=== PATIENT | male | born 1960 | race Caucasian/White ===

== ENCOUNTER 2017-07-18 09:25 | Inpatient (IN) | payer MEDICARE ==
[~2017-07-18] VITALS: Ht 180.3 cm; Wt 157.0 kg
[~2017-07-18 09:25] MED LIST: ACETAMINOPHEN 325 MG TAB PO PRN; BENZ100 PO; BISACODYL 10 MG SUPP RECTAL PRN; CLIN300C5 PO; LACTULOSE SYRUP 20 GM/30 ML CUP PO PRN; MAGNESIUM HYDROXIDE SUSP 30 ML CUP PO PRN; MEDR4PAK PO; NALOXONE HCL 0.4 MG/ML AMP IV PUSH PRN; ONDANSETRON HCL 4 MG/2 ML VIAL IVP PRN; SENNOSIDES 8.6 MG TAB PO PRN; SODIUM CHLORIDE 0.9% FLUSH 10 ML FLUSH IV FLUSH PRN
[2017-07-18 09:30] VITALS: BP 105/57; PULSE 87; RESP 20; TEMP 98.2; O2SAT 93
[2017-07-18] MEDS: SODIUM CHLORIDE 0.9% FLUSH 10 ML FLUSH IV FLUSH SCH ×2 (10:38→21:40)
[2017-07-18] MEDS: DOCUSATE SODIUM 50 MG/SENNA 8.6 MG TAB PO SCH ×2 (10:38→21:40)
[2017-07-18] MEDS ORDERED: TEST200I13 IM (10:43)
[2017-07-18] MEDS ORDERED: METF1000 PO (10:43)
[2017-07-18] MEDS ORDERED: KLOR10TA PO (10:45)
[2017-07-18] MEDS ORDERED: LISI40TA PO (10:47)
[2017-07-18] MEDS ORDERED: CLOP75TA PO (10:49)
[2017-07-18] MEDS ORDERED: METO100T PO (10:50)
[2017-07-18] MEDS ORDERED: FURO40TA PO (10:52)
[2017-07-18] MEDS ORDERED: METH8TAB3 PO (10:52)
[2017-07-18] MEDS ORDERED: ROSU40 PO (10:53)
[2017-07-18] MEDS ORDERED: ASPI-516 CHEW (10:54)
[2017-07-18 11:00] VITALS: BP 105/91; PULSE 72; RESP 20; TEMP 96.9; O2SAT 91
[2017-07-18] MEDS: METOPROLOL TARTRATE 100 MG TAB PO SCH ×2 (12:15→21:51)
[2017-07-18] MEDS: FUROSEMIDE 40 MG TAB PO SCH ×2 (12:15→19:28)
[2017-07-18] MEDS: ASPIRIN 81 MG CHEW TAB CHEW SCH (13:00)
[2017-07-18] MEDS: CLOPIDOGREL 75 MG TAB PO SCH (13:00)
[2017-07-18 14:00] VITALS: O2SAT 91
[2017-07-18] MEDS ORDERED: methylPREDNISolone 4 MG TAB PO SCH (14:00)
[2017-07-18] MEDS ORDERED: [UNRECOGNIZED DRUG - OTHER] IM SCH (14:00)
[2017-07-18] MEDS ORDERED: TESTOSTERONE ENANTHATE IM SCH (14:00)
[2017-07-18] MEDS ORDERED: LANTUS2P SQ (14:22)
[2017-07-18] MEDS ORDERED: NOVOLOGP2 SQ ×3 (14:24→14:26)
[2017-07-18] MEDS ORDERED: GLUCAGON 1 MG/ML VIAL OTHER PRN (14:30)
[2017-07-18] MEDS ORDERED: RESP: ALBUTEROL 2.5 MG/IPRATROPIUM 0.5 MG NEB (PRN) NEB (14:30)
[2017-07-18] MEDS ORDERED: DEXTROSE 50% IN WATER 50 ML VIAL(D50) IV PUSH PRN (14:30)
--- NOTE | 2017-07-18 14:47 | HHI.HP ---
HPI Service [facility] Hospitalists Primary Care Physician Non-Staff Admission Diagnosis Diagnoses: Chief Complaint: Shortness of breath Travel History International Travel<30 Days: No Contact w/Intl Traveler <30 Da: No History of Present Illness This patient is a 57-year-old gentleman with a history of diabetes and obstructive sleep apnea who comes to the hospital complaining of shortness of breath and subjective fevers for about 2 days. He does not have any chest pain but notes that he has a cough which is nonproductive and increased dyspnea on exertion associated with lower extremity swelling left greater than right. Patient says that he has had a chronic left toe ulcer be involved with the wound management team at [facility] wound care center (he goes every Saturday ) he notes that it is the lower extremity has become more erythematous and with some increased swelling. He is also quite short of breath. He has some increased work of breathing and dyspnea on exertion. In the emergency room patient did have onset of fever and chills. His temperature was 101.7. Patient was recommended for admission to the hospital Review of Systems Constitutional: COMPLAINS OF: Fever, Chills, DENIES: Diaphoretic episodes, Fatigue, Weight gain, Weight loss, Dizziness, Change in appetite, Night Sweats Endocrine: DENIES: Heat/cold intolerance, Polydipsia, Polyuria, Polyphagia Eyes: DENIES: Blurred vision, Diplopia, Eye inflammation, Eye pain, Vision loss , Photosensitivity, Double Vision Ears, nose, mouth, throat: DENIES: Tinnitus, Hearing loss, Vertigo, Nasal discharge, Oral lesions, Throat pain, Hoarseness, Ear Pain, Running Nose, Epistaxis, Sinus Pain, Toothache, Odynophagia Respiratory: COMPLAINS OF: Cough, Shortness of breath, DENIES: Apneas, Snoring , Wheezing, Hemoptysis, Sputum production Cardiovascular: COMPLAINS OF: Dyspnea on Exertion, Lower Extremity Edema, Orthopnea, DENIES: Chest pain, Palpitations, Syncope, PND, Claudication Gastrointestinal: DENIES: Abdominal pain, Black stools, Bloody stools, Constipation, Diarrhea, Nausea, Vomiting, Difficulty Swallowing, Anorexia Genitourinary: DENIES: Sexual dysfunction, Urinary frequency, Urinary incontinence, Urgency, Hematuria, Dysuria, Nocturia, Penile Discharge, Testicular Pain, Testicular Swelling Musculoskeletal: DENIES: Joint pain, Muscle aches, Stiffness, Joint Swelling, Back pain, Neck pain Integumentary: DENIES: Abnormal pigmentation, Nail changes, Pruritus, Rash Hematologic/lymphatic: DENIES: Bruising, Lymphadenopathy Immunologic/allergic: DENIES: Eczema, Urticaria Neurologic: DENIES: Abnormal gait, Headache, Localized weakness, Paresthesias, Seizures, Speech Problems, Tremor, Poor Balance Psychiatric: DENIES: Anxiety, Confusion, Mood changes, Depression, Hallucinations, Agitation, Suicidal Ideation, Homicidal Ideation, Delusions Except as stated in HPI: all other systems reviewed are Neg Past Family Social History Past Medical History Diabetes with neuropathy Obstructive sleep apnea, diabetes mellitus Coronary artery disease status post cardiac bypass, [place] 2 with CHF Hypertension Past Surgical History Bilateral great toe distal resection Cardiac bypass, stenting Reported Medications Reviewed in the EMR Allergies: Coded Allergies: No Known Allergies (Unverified , 07/17/17) Active Ordered Medications Reviewed in the EMR Family History Mother in her 80s, heart attack, father in his late 40s from heart attack Social History Patient smokes a pack a day for the last 40 years, lives with his family and is , no alcohol Physical Exam Vital Signs Vital Signs Date Time Temp Pulse Resp B/P (MAP) Pulse Ox O2 Delivery O2 Flow Rate FiO2 07/18/17 11:00 96.9 72 20 105/91 (96) 91 07/18/17 09:30 98.2 87 20 105/57 (73) 93 Physical Exam GENERAL: This is a well-nourished, well-developed patient, who is short of breath lying supine, has orthopnea SKIN: No rashes, ecchymoses or lesions. Cool and dry. HEAD: Atraumatic. Normocephalic. No temporal or scalp tenderness. EYES: Pupils equal round and reactive. Extraocular motions intact. No scleral icterus. No injection or drainage. ENT: Nose without bleeding, purulent drainage or septal hematoma. Throat without erythema, tonsillar hypertrophy or exudate. Uvula midline. Airway patent. NECK: Trachea midline. No JVD or lymphadenopathy. Supple, nontender, no meningeal signs. CARDIOVASCULAR: Regular rate and rhythm without murmurs, gallops, or rubs. RESPIRATORY: Some pursed lip breathing at rest, decreased airflow bilaterally, I did not appreciate any wheezes GASTROINTESTINAL: Abdomen soft, non-tender, nondistended. No hepato-splenomegaly , or palpable masses. No guarding. MUSCULOSKELETAL: Extremities without clubbing, cyanosis, but there is +2 edema left greater than right, status post bilateral great toe partial distal resections, third toe on the left has some edematous changes consistent with probable cellulitis versus ulcer, patient with hyperflexed toes on both feet otherwise, upper extremities however show No joint tenderness, effusion, or edema noted. No calf tenderness. Negative Homans sign bilaterally. NEUROLOGICAL: Awake and alert. Cranial nerves II through XII intact. Motor and sensory grossly within normal limits. Five out of 5 muscle strength in all muscle groups. Normal speech. Imaging Chest x-ray 07/17 shows no acute intracardialOn my review from our intrapulmonary issues, I think there may be some vascular congestion however Course Reviewed in the EMR Caprini VTE Risk Assessment Caprini VTE Risk Assessment: Mod/High Risk (score >= 2) Caprini Risk Assessment Model Point Value = 1 Point Value = 2 Point Value = 3 Point Value = 5 Age 41-60 Minor surgery BMI > 25 kg/m2 Swollen legs Varicose veins or History of unexplained or recurrent spontaneous Oral contraceptives or hormone replacement Sepsis (< 1 month) Serious lung disease, including pneumonia (< 1 month) Abnormal pulmonary function Acute myocardial infarction Congestive heart failure (< 1 month) History of inflammatory bowel disease Medical patient at bed rest Age 61-74 Arthroscopic surgery Major open surgery (> 45 min) Laparoscopic surgery (> 45 min) Malignancy Confined to bed (> 72 hours) Immobilizing plaster cast Central venous access Age >= 75 History of VTE Family history of VTE Factor V Leiden Prothrombin [id number] Lupus anticoagulant Anticardiolipin antibodies Elevated serum homocysteine Heparin-induced thrombocytopenia Other congenital or acquired thrombophilia Stroke (< 1 month) Elective arthroplasty Hip, pelvis, or leg fracture Acute spinal cord injury (< 1 month) Prophylaxis Regimen Total Risk Factor Score Risk Level Prophylaxis Regimen 0-1 Low Early ambulation 2 Moderate Order ONE of the following: *Sequential Compression Device (SCD) *Heparin 5000 units SQ BID 3-4 Higher Order ONE of the following medications: *Heparin 5000 units SQ TID *Enoxaparin/Lovenox 40 mg SQ daily (WT < 150 kg, CrCl > 30 mL/min) *Enoxaparin/Lovenox 30 mg SQ daily (WT < 150 kg, CrCl > 10-29 mL/min) *Enoxaparin/Lovenox 30 mg SQ BID (WT < 150 kg, CrCl > 30 mL/min) AND/OR *Sequential Compression Device (SCD) 5 or more Highest Order ONE of the following medications: *Heparin 5000 units SQ TID (Preferred with Epidurals) *Enoxaparin/Lovenox 40 mg SQ daily (WT < 150 kg, CrCl > 30 mL/min) *Enoxaparin/Lovenox 30 mg SQ daily (WT < 150 kg, CrCl > 10-29 mL/min) *Enoxaparin/Lovenox 30 mg SQ BID (WT < 150 kg, CrCl > 30 mL/min) AND *Sequential Compression Device (SCD) Assessment and Plan Problem List: (1) SOB (shortness of breath) ICD Code: R06.02 - Shortness of breath Plan: May be multifactorial due to CHF versus COPD. Patient does have underlying obstructive sleep apnea. We will continue his home CPAP machine, will give a trial of nebulized bronchodilators as well as IV steroids Continue patient education on tobacco cessation. A follow-up echocardiogram as well, BMP is quite low however patient may have right-sided heart failure which will need to be further evaluated. Daily weights and accurate ins and outs ordered (2) Edema ICD Code: R60.9 - Edema, unspecified Plan: We will gently diurese patient for improved respiratory status and to improve edema (3) Toe infection ICD Code: L08.9 - Local infection of the skin and subcutaneous tissue, unspecified Plan: We will add Levaquin, follow-up with podiatry Patient currently in outpatient setting follows up with the wound care clinic at [place]. Foot appears a bit warm and edematous compared to the other side (4) DM2 (diabetes mellitus, type 2) ICD Code: E11.9 - Type 2 diabetes mellitus without complications (5) CO2 retention ICD Code: E87.2 - Acidosis Plan: Workup for possible COPD given patient's long-standing tobacco dependency , CO2 retention and shortness of breath (6) CKD (chronic kidney disease) stage 3, GFR 30-59 ml/min ICD Code: N18.3 - Chronic kidney disease, stage 3 (moderate) Plan: Likely due to underlying diabetes and hypertension. Will adjust medications appropriately for renal clearance and avoid nephrotoxic injury (7) LFT elevation ICD Code: R79.89 - Other specified abnormal findings of blood chemistry Plan: May be passive congestion. Will follow up improvement with some gentle diuresis (8) Fever ICD Code: R50.9 - Fever, unspecified Plan: Elevated temperature in the emergency room yesterday. Will continue with Levaquin for now, medically cellulitis X-ray and blood cultures at this time appear negative Urinalysis appears negative at this time also Physician Certification 2 Midnight Certification Type: Admission for Inpatient Services Order for Inpatient Services The services are ordered in accordance with Medicare regulations or non- Medicare payer requirements, as applicable. In the case of services not specified as inpatient-only, they are appropriately provided as inpatient services in accordance with the 2-midnight benchmark. Estimated LOS (days): 3 3 days is the estimated time the patient will need to remain in the hospital, assuming treatment plan goals are met and no additional complications. Post-Hospital Plan: Home Health Glenna Marrero MD Jul 18, 2017 14:47
[2017-07-18] MEDS ORDERED: LEVOFLOXACIN 250 MG TAB PO SCH (16:00)
[2017-07-18] MEDS: PIPERACIL-TAZO 4.5 GM PREMIX 100 ML IV SCH (16:04)
[2017-07-18] MEDS: INSULIN ASPART 1,000 UNITS/10 ML VIAL SQ SCH (16:09)
[2017-07-18 16:40] VITALS: BP 112/55; PULSE 77; RESP 16; TEMP 98.4; O2SAT 91
--- NOTE | 2017-07-18 17:13 | PD.CONS ---
History of Present Illness Service Podiatry Consult Requested By Dr Marrero Reason for Consult Left 2nd toe ulcer Primary Care Physician Non-Staff Diagnoses: History of Present Illness 57-year-old diabetic male who has had a wound to distal left 2nd toe for several months being treated at [facility]. He has history of amputation also to distal left hallux fur to infection. He was admitted due to having issues with breathing and he was also febrile. Podiatry was consulted to assess severity of left 2nd toe. Past Family Social History Allergies: Coded Allergies: No Known Allergies (Unverified , 07/17/17) Past Medical History Diabetes with neuropathy Obstructive sleep apnea, diabetes mellitus Coronary artery disease status post cardiac bypass, [place] 2 with CHF Hypertension Past Surgical History Bilateral great toe distal resection Cardiac bypass, stenting Active Ordered Medications Current Medications Medications (Trade) Dose Ordered Sig/Griffin Route Start Time Stop Time Status Last Admin (NS Flush) 2 ml UNSCH PRN IV FLUSH 07/18/17 06:45 (NS Flush) 2 ml BID IV FLUSH 07/18/17 09:00 07/18/17 10:38 (Tylenol) 650 mg Q4H PRN PO 07/18/17 06:45 (Zofran Inj) 4 mg Q6H PRN IVP 07/18/17 06:45 (Narcan Inj) 0.4 mg UNSCH PRN IV PUSH 07/18/17 06:45 (Tracy-Colace) 1 tab BID PO 07/18/17 11:00 07/18/17 10:38 (Milk Of Magnesia Liq) 30 ml Q12H PRN PO 07/18/17 06:45 (Senokot) 17.2 mg Q12H PRN PO 07/18/17 06:45 (Dulcolax Supp) 10 mg DAILY PRN RECTAL 07/18/17 06:45 (Lactulose Liq) 30 ml DAILY PRN PO 07/18/17 06:45 (Aspirin Chew) 81 mg DAILY CHEW 07/18/17 13:00 (Plavix) 75 mg DAILY PO 07/18/17 13:00 (Lasix) 40 mg BID@0900,1800 PO 07/18/17 12:15 (Lopressor) 100 mg BID PO 07/18/17 12:15 (KCl) 10 meq BID PO 07/18/17 21:00 Patient Own Medication PT OWN MED: TESTOSTERONE ENANTH... Q15D IM 07/18/17 14:00 Future Hold (Prinivil) 40 mg DAILY PO 07/19/17 09:00 (Lipitor) 80 mg DAILY PO 07/19/17 09:00 Piperacillin Sod/ Tazobactam Sod 100 ml @ 200 mls/hr Q8H IV 07/18/17 16:00 07/18/17 16:04 (D50w (Vial) Inj) 50 ml UNSCH PRN IV PUSH 07/18/17 14:30 (Glucagon Inj) 1 mg UNSCH PRN OTHER 07/18/17 14:30 (NovoLOG SUPPLEMENTAL SCALE) 1 ACHS SLIDING SCALE SQ 07/18/17 17:00 (NovoLOG INJ) 20 units AC BREAKFAST SQ 07/19/17 07:00 (NovoLOG INJ) 20 units AC DINNER SQ 07/18/17 16:00 07/18/17 16:09 (NovoLOG INJ) 20 units AC LUNCH SQ 07/19/17 11:00 (Levemir Inj) 51 units HS SQ 07/18/17 21:00 (Lasix Inj) 20 mg BID@,18 IV PUSH 07/18/17 18:00 (Duoneb Neb) 1 ampule Q6HR WHILE AWAKE NEB NEB 07/18/17 20:00 (Duoneb Neb) 1 ampule Q2HR NEB PRN NEB 07/18/17 14:30 (SoluMEDROL INJ) 40 mg Q8HR IV PUSH 07/18/17 22:00 (Levaquin) 250 mg Q48H PO 07/18/17 16:00 07/18/17 16:05 Family History Mother in her 80s, heart attack, father in his late 40s from heart attack Social History Patient smokes a pack a day for the last 40 years, lives with his family and is , no alcohol Physical Exam Vital Signs Vital Signs Date Time Temp Pulse Resp B/P (MAP) Pulse Ox O2 Delivery O2 Flow Rate FiO2 07/18/17 16:40 98.4 77 16 112/55 (74) 91 07/18/17 14:00 91 PT CPAP 2.00 07/18/17 11:00 96.9 72 20 105/91 (96) 91 07/18/17 09:30 98.2 87 20 105/57 (73) 93 Physical Exam Patient having difficulty breathing and uncomfortable lying down. Nonpalpable pulses. Edema present. no increase in temperature compared to contralateral extremity Distal left 2nd digit with edema and small distal ulceration with no active purulent drainage. No erythema. Does not appear to be acutely infected at this time. Sensation absent to light touch. Laboratory Laboratory Tests Test 07/18/17 15:25 Blood Gas Puncture Site RT RADIAL Blood Gas Patient Temperature 37.0 Blood Gas HCO3 30 Blood Gas Base Excess 5.8 Blood Gas Oxygen Saturation 92 Arterial Blood pH 7.45 Arterial Blood Partial Pressure CO2 44 Arterial Blood Partial Pressure O2 70 Arterial Blood Oxygen Content 21.6 Arterial Blood Carboxyhemoglobin 2.1 Arterial Blood Methemoglobin 0.9 Blood Gas Hemoglobin 16.8 Oxygen Delivery Device ROOM AIR Blood Gas Inspired Oxygen 21 Imaging MRI pending. XR L foot yesterday no gas in tissue Assessment and Plan Assessment and Plan Ulcer L 2nd toe, likely chronic osteomyelitis Ordering MRI L foot with/without contrast to evaluate for osteomyelitis. Ordering transfer due to needing surgery and very high risk for anesthesia complications due to significant comorbidities. Ordering vascular consultation with Dr Benítez due to nonhealing wound. Discussed with patient he will likely undergo distal toe amputation in the coming days, pending vascular workup Soy Lawson DPM Jul 18, 2017 17:13
[2017-07-18] MEDS: INSULIN ASPART SUPPLEMENTAL SCALE SQ SCH ×2 (18:15→21:39)
[2017-07-18] MEDS: FUROSEMIDE 20 MG/2 ML VIAL IV PUSH SCH (18:16)
[2017-07-18 19:12] VITALS: O2SAT 92
[2017-07-18] MEDS: RESP: ALBUTEROL 2.5 MG/IPRATROPIUM 0.5 MG NEB (SCH) NEB (19:12)
[2017-07-18 21:00] VITALS: BP 140/65; PULSE 101; RESP 20; TEMP 98; O2SAT 95
[2017-07-18] MEDS ORDERED: INSULIN DETEMIR 100 UNITS/ML VIAL SQ SCH (21:00)
[2017-07-18] MEDS: POTASSIUM CHLORIDE 10 MEQ CONTROLLED RELEASE TAB PO SCH (21:40)
[2017-07-18] MEDS: methylPREDNISolone SOD SUCC 40 MG/1 ML VIAL IV PUSH SCH (21:41)
[2017-07-18] MEDS: guaiFENesin/DEXTROMETHORPHAN 200 MG/20 MG/10 ML CUP PO PRN (22:51)
[2017-07-19] VITALS (8 sets, daily range): BP systolic 106–128; BP diastolic 55–65; PULSE 68–79; RESP 18–20; TEMP 97.3–98.3; O2SAT 90–98
[2017-07-19] MEDS: PIPERACIL-TAZO 4.5 GM PREMIX 100 ML IV SCH ×4 (01:22→23:04)
[2017-07-19] MEDS: guaiFENesin/DEXTROMETHORPHAN 200 MG/20 MG/10 ML CUP PO PRN ×4 (03:49→23:04)
[2017-07-19] MEDS: methylPREDNISolone SOD SUCC 40 MG/1 ML VIAL IV PUSH SCH ×2 (06:28→12:59)
[2017-07-19 07:25] LABS: AUTOMATED NEUTROPHIL # 7.9 TH/MM3 (1.8-7.7); BASOPHIL % 0.3 % (0.0-2.0); HEMATOCRIT 47.4 % (39.0-51.0); HEMOGLOBIN 16.2 GM/DL (13.0-17.0); LYMPH % 6.3 % (9.0-44.0); LYMPHOCYTE # 0.5 TH/MM3 (1.0-4.8); MEAN CELL VOLUME 89.9 FL (80.0-100.0); MEAN CORPUSCULAR HEMOGLOBIN 30.6 PG (27.0-34.0); MEAN CORPUSCULAR HGB CONC 34.1 % (32.0-36.0); MEAN PLATELET VOLUME 10.1 FL (7.0-11.0); MONO % 2.8 % (0.0-8.0); MONOCYTE # 0.2 TH/MM3 (0-0.9); NEUT % 90.6 % (16.0-70.0); PLATELET COUNT 126 TH/MM3 (150-450); RED BLOOD COUNT 5.28 MIL/MM3 (4.50-5.90); RED CELL DISTRIBUTION WIDTH 16.1 % (11.6-17.2); WHITE BLOOD COUNT 8.7 TH/MM3 (4.0-11.0)
[2017-07-19] MEDS: RESP: ALBUTEROL 2.5 MG/IPRATROPIUM 0.5 MG NEB (SCH) NEB ×2 (07:27→20:45)
[2017-07-19 07:37] LABS: BICARBONATE 32.4 MEQ/L (21.0-32.0); BLOOD UREA NITROGEN 41 MG/DL (7-18); CALCIUM 8.5 MG/DL (8.5-10.1); CHLORIDE 89 MEQ/L (98-107); CHOLESTEROL 86 MG/DL (120-200); CREATININE 1.56 MG/DL (0.60-1.30); GLOMERULAR FILTRATION RATE 46 ML/MIN (>89); GLUCOSE,RANDOM 249 MG/DL (74-106); SODIUM (NA) 129 MEQ/L (136-145); TRIGLYCERIDES 134 MG/DL (42-150)
[2017-07-19 07:40] LABS: CHOLESTEROL/ HDL RATIO 4.72 RATIO; HDL CHOLESTEROL 18.2 MG/DL (40.0-60.0); LDL CHOLESTEROL 41 MG/DL (0-99)
[2017-07-19] MEDS: INSULIN ASPART 1,000 UNITS/10 ML VIAL SQ SCH ×3 (08:56→16:00)
[2017-07-19] MEDS: DOCUSATE SODIUM 50 MG/SENNA 8.6 MG TAB PO SCH ×2 (09:00→21:12)
[2017-07-19] MEDS: INSULIN ASPART SUPPLEMENTAL SCALE SQ SCH ×4 (09:01→21:11)
[2017-07-19] MEDS: LISINOPRIL 20 MG TAB PO SCH (09:03)
[2017-07-19] MEDS: POTASSIUM CHLORIDE 10 MEQ CONTROLLED RELEASE TAB PO SCH ×2 (09:03→21:12)
[2017-07-19] MEDS: ATORVASTATIN 40 MG TAB PO SCH (09:04)
[2017-07-19] MEDS: ASPIRIN 81 MG CHEW TAB CHEW SCH (09:04)
[2017-07-19] MEDS: CLOPIDOGREL 75 MG TAB PO SCH (09:05)
[2017-07-19] MEDS: METOPROLOL TARTRATE 100 MG TAB PO SCH ×2 (09:06→21:22)
[2017-07-19] MEDS: SODIUM CHLORIDE 0.9% FLUSH 10 ML FLUSH IV FLUSH SCH ×2 (09:08→21:12)
[2017-07-19] MEDS: FUROSEMIDE 20 MG/2 ML VIAL IV PUSH SCH ×2 (09:08→17:37)
--- NOTE | 2017-07-19 09:47 | HHI.PR ---
Subjective Remarks Follow-up diabetic foot ulcer. Previous wound culture grew MRSA and asymptomatic. Does not remember being on antibiotics. Patient reports that he came in because of the right lower back pain that he had a kidney stone denies being short of breath. Reports of improving cough. History of coronary artery disease status post [place] status post stents and bypass in 2009. Negative stress test and echocardiogram over a year ago. Discussed with nursing Objective Vitals Vital Signs Date Time Temp Pulse Resp B/P (MAP) Pulse Ox O2 Delivery O2 Flow Rate FiO2 07/19/17 08:00 97.8 76 19 108/62 (77) 96 07/19/17 07:32 98 07/19/17 05:13 98.3 72 20 128/65 (86) 93 07/19/17 00:00 98.2 79 20 111/58 (75) 93 07/18/17 21:00 98.0 101 20 140/65 (90) 95 07/18/17 19:12 92 CPAP 2.00 07/18/17 16:40 98.4 77 16 112/55 (74) 91 07/18/17 14:00 91 PT CPAP 2.00 07/18/17 11:00 96.9 72 20 105/91 (96) 91 I/O 07/18/17 07/18/17 07/18/17 07/19/17 07/19/17 07/19/17 07:00 15:00 23:00 07:00 15:00 23:00 Intake Total 820 ml Output Total 200 ml Balance 620 ml Intake Oral 720 ml IV Total 100 ml Output Urine Total 200 ml # Voids 1 2 # Bowel Movements 1 Result Diagram: 07/19/17 0645 07/19/17 0645 Imaging Last Impressions Foot MRI 07/19/17 0000 Signed Impressions: Service Date/Time: Wednesday, July 19, 2017 14:09 - CONCLUSION: 1. No evidence of osteomyelitis at the 1st digit partial amputation site. 2. Mild diffuse soft tissue swelling about the distal forefoot without focal fluid collections seen. 3. Advanced degenerative changes in the calcaneus adjacent to the cuboid articulation and the anterior talar facet with associated subchondral cysts. Anatoliy Mccormick MD Objective Remarks GENERAL: This is an obese, well-developed patient SKIN: No rashes, ecchymoses or lesions. Cool and dry. CARDIOVASCULAR: Regular rate and rhythm without murmurs, gallops, or rubs. RESPIRATORY: Decreased breath sounds GASTROINTESTINAL: Abdomen soft, non-tender, nondistended.No guarding. No CVA tenderness MUSCULOSKELETAL: Extremities without clubbing, cyanosis, but there is +2 edema left greater than right, status post bilateral great toe partial distal resections, third toe on the left has some edematous changes with ulcer, patient with hyperflexed toes on both feet otherwise, upper extremities however show No joint tenderness, effusion, or edema noted. No calf tenderness. Negative Homans sign bilaterally. NEUROLOGICAL: Awake and alert. Cranial nerves II through XII intact. Motor and sensory grossly within normal limits. Five out of 5 muscle strength in all muscle groups. Normal speech. A/P Problem List: (1) SOB (shortness of breath) ICD Code: R06.02 - Shortness of breath (2) Edema ICD Code: R60.9 - Edema, unspecified (3) Toe infection ICD Code: L08.9 - Local infection of the skin and subcutaneous tissue, unspecified (4) DM2 (diabetes mellitus, type 2) ICD Code: E11.9 - Type 2 diabetes mellitus without complications (5) CO2 retention ICD Code: E87.2 - Acidosis (6) CKD (chronic kidney disease) stage 3, GFR 30-59 ml/min ICD Code: N18.3 - Chronic kidney disease, stage 3 (moderate) (7) LFT elevation ICD Code: R79.89 - Other specified abnormal findings of blood chemistry (8) Fever ICD Code: R50.9 - Fever, unspecified Assessment and Plan (1) SOB (shortness of breath) Patient denies being short of breath but has cough likely secondary to acute bronchitis no history of CHF or COPD. EF 50%. Patient does have underlying obstructive sleep apnea. Improving symptoms. We will continue his home CPAP machine, will give a trial of nebulized bronchodilators. Discontinue IV steroids as patient not complaining of shortness of breath anymore Continue patient education on tobacco cessation. (2) Edema. This is chronic. Elevation. Will hold Lasix for now secondary to acute kidney injury (3) diabetic toe ulcer. MRI does not show osteomyelitis. Previous wound culture with MRSA and Acinetobacter. Blood culture now with gram-positive cocci. We will continue IV Zosyn and add IV clindamycin. Can't give IV vancomycin secondary to acute kidney injury. Consult infectious disease. (4) DM2 (diabetes mellitus, type 2). Uncontrolled A1c over 10. Continue preprandial insulin and increase Levemir to 60 units at bedtime. Diabetic education. (5) CO2 retention. This is chronic with history of ANA possible COPD. Will need PFTs. Consider pulmonary consult (6) acute kidney injury with rhabdomyolysis. Start IV hydration and avoid nephrotoxins. Likely due to underlying diabetes and hypertension. Will adjust medications appropriately for renal clearance and avoid nephrotoxic injury (7) LFT elevation. May be passive congestion. Will follow up improvement (8) possible peripheral vascular disease. CTA has been ordered. (9) chronic medical conditions of coronary artery disease and hypertension. Continue outpatient medications as appropriate. Obtain records from PCP DVT prophylaxis with subcu heparin Dameon Ramos MD Jul 19, 2017 09:47
[2017-07-19 11:58] LABS: BILIRUBIN, URINE NEG (NEG); BLOOD, URINE SMALL (NEG); GLUCOSE,URINE 1000 mg/dL (NEG); KETONE, URINE 10 mg/dL (NEG); MUCUS URINE FEW /lpf (OCC); NITRITE,URINE NEG (NEG); PH, URINE 5.5 (5.0-8.5); URINE COLOR YELLOW (YELLW/STRAW); URINE LEUKOCYTE ESTERASE NEG (NEG)
--- NOTE | 2017-07-19 12:59 | ECHRPT ---
Indication: shortness of breath CONCLUSIONS The left ventricular systolic function is low normal with an estimated ejection fraction in the rang e of 50- 55%. Normal left ventricular size. Mild concentric left ventricular hypertrophy. No regional wall motion abnormalities are present. The left atrial size is mildly dilated. Trace mitral valve regurgitation. The pulmonary valve is not well visualized. BP: 128 / 65 HR: 72 Rhythm: Sinus MEASUREMENTS (Male / Female) Normal Values Technical Quality:Very technically difficult study 2D ECHO LV Diastolic Diameter PLAX 5.2 cm 4.2 - 5.9 / 3.9 - 5.3 cm LV Systolic Diameter PLAX 3.9 cm IVS Diastolic Thickness 1.3 cm 0.6 - 1.0 / 0.6 - 0.9 cm LVPW Diastolic Thickness 1.4 cm 0.6 - 1.0 / 0.6 - 0.9 cm LV Relative Wall Thickness 0.5 RV Internal Dim ED PLAX 3.7 cm LVOT Diameter 2.0 cm LA Systolic Diameter LX 4.4 cm 3.0 - 4.0 / 2.7 - 3.8 cm M-MODE Aortic Root Diameter MM 3.1 cm AV Cusp Separation MM 1.7 cm DOPPLER AV Peak Velocity 124.0 cm/s AV Peak Gradient 6.2 mmHg LVOT Peak Velocity 83.9 cm/s LVOT Peak Gradient 2.8 mmHg AV Area Cont Eq pk 2.1 cm MV Area PHT 5.1 cm Mitral E Point Velocity 81.9 cm/s Mitral A Point Velocity 48.4 cm/s Mitral E to A Ratio 1.7 LV E' Lateral Velocity 5.8 cm/s Mitral E to LV E' Lateral Ratio 14.2 LV E' Septal Velocity 3.8 cm/s Mitral E to LV E' Septal Ratio 21.6 PV Peak Velocity 103.0 cm/s PV Peak Gradient 4.2 mmHg FINDINGS LEFT VENTRICLE The left ventricular systolic function is low normal with an estimated ejection fraction in the rang e of 50- 55%. Normal left ventricular size. Mild concentric left ventricular hypertrophy. No regional wall motion abnormalities are present. RIGHT VENTRICLE Normal right ventricular size and systolic function. LEFT ATRIUM The left atrial size is mildly dilated. RIGHT ATRIUM The right atrial size is normal. ATRIAL SEPTUM Normal atrial septal thickness without atrial level shunting by limited color doppler interrogation. AORTA The aortic root and proximal ascending aorta are normal in size on limited imaging. MITRAL VALVE Structurally normal mitral valve. Trace mitral valve regurgitation. AORTIC VALVE Trileaflet aortic valve. No aortic valve stenosis or regurgitation. TRICUSPID VALVE Structurally normal tricuspid valve. No tricuspid valve stenosis or regurgitation. PULMONARY VALVE The pulmonary valve is not well visualized. VESSELS The inferior vena cava is normal in size. PERICARDIUM No pericardial effusion. Salvatore Gracia MD, FACC (Electronically Signed) Final Date:19 July 2017 12:59
[2017-07-19 14:38] LABS: HEMOGLOBIN A1C 10.6 % (4.3-6.0)
[2017-07-19] MEDS ORDERED: GADODIAMIDE PF 287 MG/ML 20 ML VIAL (for RAD MRI) IVCONTRAST ONE (15:14)
--- NOTE | 2017-07-19 16:12 | RADRPT ---
EXAM DATE/TIME: 07/19/2017 14:09 [facility] COMPARISON: FOOT LEFT LIMITED (2VWS), July 17, 2017, 21:31. INDICATIONS : Osteomyelitis. CONTRAST: 20 cc Omniscan (gadodiamide) IV MEDICAL HISTORY : Hypertension. Diabetes mellitus type 2. SURGICAL HISTORY : CABG Total knee replacement, right. Coronary artery stent. ENCOUNTER: Initial ACUITY: 1 day PAIN SCORE: 0/10 LOCATION: Left foot TECHNIQUE: Multiplanar, multisequence MRI examination was performed without contrast and after the intravenous a dministration of gadolinium. FINDINGS: Amputation of the mid 1st digit proximal phalanx. There is normal signal in the marrow of the residu al optimal phalanx and in the 1st metatarsal bone. No abnormal enhancement seen in the marrow. Mini mal amount of fluid is seen in the space between the distal 1st metatarsus and sesamoid bones. Mild soft tissue swelling about the dorsal and plantar aspect of the forefoot without focal areas of abnor mal enhancement seen. There is signal abnormality in the marrow of both the talus and calcaneus in t he space between the anterior and mid facet. There also multiple subchondral cysts in the calcaneus adjacent to the anterior facet and articulation with the cuboid bone. These cystic areas demonstrate some enhancement characteristic of subchondral cysts related to advanced degenerative changes. CONCLUSION: 1. No evidence of osteomyelitis at the 1st digit partial amputation site. 2. Mild diffuse soft tissue swelling about the distal forefoot without focal fluid collections seen. 3. Advanced degenerative changes in the calcaneus adjacent to the cuboid articulation and the anterio r talar facet with associated subchondral cysts. Anatoliy Mccormick MD on July 19, 2017 at 16:04 Board Certified Radiologist. This report was verified electronically.
--- NOTE | 2017-07-19 17:21 | MB ---
cc: MD PEPE,[facility] DATE OF CONSULTATION: 07/19/2017. REASON FOR CONSULTATION: Peripheral vascular disease and ischemia of the left leg with gangrene of the left second toe. HISTORY OF PRESENT ILLNESS: This is a 57-year-old male with longstanding history of diabetes, sleep apnea and morbid obesity presented to the hospital with a cough, but on exam, he was noted to have swelling and purulent discharge of the ulcer involving the left second toe. The patient was seen in the wound care center several times and the patient now has a temperature of 102 and leukocytosis. The appropriate services were consulted. Vascular surgery is now consulted for any input. PAST MEDICAL HISTORY: 1. Diabetes mellitus. 2. Peripheral neuropathy. 3. Sleep apnea. 4. Coronary artery disease status post myocardial infarction in 2009 and coronary artery bypass surgery. 5. Hypertension. PAST SURGICAL HISTORY: 1. The above-noted cardiac bypass and stents. 2. Bilateral great toe resection. SOCIAL HISTORY: The patient continues to smoke one pack a day. Drinks socially. PHYSICAL EXAMINATION: GENERAL: The physical examination reveals an obese 57-year-old male appearing older than his actual age. HEAD, EYES, EARS, NOSE, THROAT: Normocephalic. No trauma to the head. Pupils equal and reactive. Extraocular muscles intact. NECK: Bilateral carotid pulses. Very short and stocky. No bruits. CHEST: Decreased breath sounds over both lung fitch consistent with a moderate degree of COPD. The patient's body habitus does not allow for a good examination. ABDOMEN: Massively obese with active bowel sounds. No masses. No rebound. No guarding. The exam is limited due to the patient's habitus. EXTREMITIES: The patient has palpable femoral pulses and no distal pulses below that. He has Dopplerable popliteal and posterior tibial pulses. The dorsalis pedis and PT pulses by doppler present bilateral . The patient has dependent rubor. No elevation pallor though. Has bilateral hemosiderosis, lipo fibrosis and stigmata of chronic venous insufficiency and stasis with swelling and organized edema. NEUROLOGIC: He is fully intact. IMPRESSION: A patient with diabetic peripheral vascular disease. Patient does not have appreciable significant inflow disease down to the knees. The chances are the majority of this is below the level of the knee and likely diffuse, but will do a CTA with a runoff and see which way it goes. Unlikely that patient has any reconstructible pathology. Gregg RAHMAN /3:39 PM /4:52 PM LÁZARO
[2017-07-19] MEDS ORDERED: IOHEXOL 350 MG/ML 10 ML VIAL (for RAD DIAG) IVCONTRAST ONE (19:12)
[2017-07-19] MEDS: INSULIN DETEMIR 100 UNITS/ML VIAL SQ SCH (21:11)
[2017-07-19] MEDS: CLINDAMYCIN 600 MG/NS PREMIX 50 ML IV SCH (21:12)
[2017-07-19] MEDS: HEPARIN SODIUM - SQ 10,000 UNITS/ML VIAL SQ SCH ×2 (21:13→21:18)
[2017-07-19] MEDS: SODIUM CHLOR 0.9% 1000 ML INJ 1,000 ML IV SCH (21:32)
--- NOTE | 2017-07-19 21:33 | RADRPT ---
EXAM DATE/TIME: 07/19/2017 19:10 [facility] COMPARISON: No previous studies available for comparison. INDICATIONS : Wound to distal left second toe. IV CONTRAST: 99 cc Omnipaque 350 (iohexol) IV RADIATION DOSE: 8.90 CTDIvol (mGy) MEDICAL HISTORY : Hypertension. Chronic obstructive pulmonary disease. Diabetes mellitus type 1.C HF SURGICAL HISTORY : CABG Cholecystectomy. ENCOUNTER: Initial ACUITY: 1 day PAIN SCALE: 6/10 LOCATION: Left foot. TECHNIQUE: Volumetric scanning was performed using a multi-row detector CT scanner. The data was post processed with a variety of visualization algorithms including full volume maximum intensity pr ojection, multi-planar sliding thin slab reformation, curved planar reformation, and surface renderin g techniques. Using automated exposure control and adjustment of the mA and/or kV according to patie nt size, radiation dose was kept as low as reasonably achievable to obtain optimal diagnostic quality images. DICOM format image data is available electronically for review and comparison. AORTA: Abdominal aorta is normal in caliber without significant plaque or flow-limiting stenosis. 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 Mild stenosis of the renal or igins secondary calcified plaque. Left gastric artery apparently originates directly from the aorta. There is mild stenosis of the celiac origin secondary calcified plaque. Minimal stenosis of the SMA o rigin secondary calcified plaque. SERA is patent. RIGHT LEG: INFLOW: Calcified plaque in the common iliac origin with mild stenosis. Diffusely calcified inter nal iliac artery. External iliac artery is patent. Mild calcified plaque in the distal common femoral with mild stenosis. OUTFLOW: Profunda is patent. Distal SFA is diffusely calcified with tandem mild to moderate steno ses near the adductor canal. Popliteal artery is patent. RUNOFF: Bulky plaque in the distal tibioperoneal trunk. Otherwise, three-vessel runoff with a hig h origin of the inter-tibial artery. LEFT LEG: INFLOW: Calcified plaque in the common iliac origin with mild stenosis. Diffusely calcified inter nal iliac artery. External iliac artery is patent. Mild calcified plaque in the distal common femoral with mild stenosis. OUTFLOW: Profunda is patent. Mild diffuse calcified plaque in the distal SFA with tandem mild salome noses. Focal bulky calcification in the above knee popliteal artery with mild to moderate stenosis. RUNOFF: Bulky plaque in the distal tibioperoneal trunk. Otherwise, three-vessel runoff with a hig h origin of the inter-tibial artery. GENERAL FINDINGS: Visualized lung bases are clear. Evaluation of the abdominal viscera is limited due to arterial phase technique. Liver, spleen, adrenal glands, and pancreas are grossly unremarkable. There is a small 1 cm calcified density adjacent to the pancreatic head and away from the common bile duct. This may ref lect material in the duodenum or sequela of prior pancreatitis. Kidneys demonstrate symmetrical enhan cement without evidence for radiopaque renal calculi or hydronephrosis. No significant renal mass. Th e bowel appears unremarkable without evidence for obstruction. No significant free fluid or drainable fluid collection. Bladder is mildly distended but otherwise unremarkable. Prostate and seminal vesicles are within norm al limits. CONCLUSION: 1. No significant aortic occlusive disease. 2. Mild stenosis of the bilateral common iliac origins secondary calcified plaque. 3. Mild tandem stenoses of the distal SFA bilaterally. 4. Bulky calcified plaque in the distal tibioperoneal trunk bilaterally. Otherwise, three-vessel runo ff to the feet. 5. Small 1 cm calcified density adjacent to the pancreatic head and away from the common bile duct. T his may reflect material in the duodenum or sequela of prior pancreatitis. Jorge Cerda MD on July 19, 2017 at 21:21 Board Certified Radiologist. This report was verified electronically.
[2017-07-20] VITALS (7 sets, daily range): BP systolic 106–135; BP diastolic 55–80; PULSE 67–92; RESP 18–19; TEMP 97.1–98.4; O2SAT 92–98
[2017-07-20] MEDS: CLINDAMYCIN 600 MG/NS PREMIX 50 ML IV SCH ×2 (03:27→12:39)
[2017-07-20] MEDS: guaiFENesin/DEXTROMETHORPHAN 200 MG/20 MG/10 ML CUP PO PRN ×4 (03:27→21:10)
[2017-07-20] MEDS: INSULIN ASPART 1,000 UNITS/10 ML VIAL SQ SCH ×3 (07:00→16:00)
[2017-07-20] MEDS: RESP: ALBUTEROL 2.5 MG/IPRATROPIUM 0.5 MG NEB (SCH) NEB ×3 (07:45→19:41)
[2017-07-20] MEDS: INSULIN ASPART SUPPLEMENTAL SCALE SQ SCH ×4 (08:00→21:00)
[2017-07-20] MEDS: LISINOPRIL 20 MG TAB PO SCH (08:49)
[2017-07-20] MEDS: PIPERACIL-TAZO 4.5 GM PREMIX 100 ML IV SCH ×2 (08:49→16:42)
[2017-07-20] MEDS: CLOPIDOGREL 75 MG TAB PO SCH (08:50)
[2017-07-20] MEDS: ATORVASTATIN 40 MG TAB PO SCH (08:50)
[2017-07-20] MEDS: DOCUSATE SODIUM 50 MG/SENNA 8.6 MG TAB PO SCH ×2 (08:51→21:00)
[2017-07-20] MEDS: ASPIRIN 81 MG CHEW TAB CHEW SCH (08:51)
[2017-07-20] MEDS: METOPROLOL TARTRATE 100 MG TAB PO SCH ×2 (08:51→21:09)
[2017-07-20] MEDS: POTASSIUM CHLORIDE 10 MEQ CONTROLLED RELEASE TAB PO SCH ×2 (08:51→21:11)
[2017-07-20] MEDS: SODIUM CHLORIDE 0.9% FLUSH 10 ML FLUSH IV FLUSH SCH ×2 (08:52→21:11)
[2017-07-20] MEDS: HEPARIN SODIUM - SQ 10,000 UNITS/ML VIAL SQ SCH ×3 (08:54→21:00)
[2017-07-20] MEDS: SODIUM CHLOR 0.9% 1000 ML INJ 1,000 ML IV SCH (10:59)
[2017-07-20 11:05] LABS: AUTOMATED NEUTROPHIL # 6.7 TH/MM3 (1.8-7.7); BASOPHIL % 0.2 % (0.0-2.0); EOSINOPHIL % 0.1 % (0.0-4.0); HEMOGLOBIN 16.6 GM/DL (13.0-17.0); LYMPH % 10.7 % (9.0-44.0); LYMPHOCYTE # 0.9 TH/MM3 (1.0-4.8); MEAN CELL VOLUME 89.6 FL (80.0-100.0); MEAN CORPUSCULAR HGB CONC 34.5 % (32.0-36.0); MEAN PLATELET VOLUME 10.5 FL (7.0-11.0); MONOCYTE # 0.9 TH/MM3 (0-0.9); PLATELET COUNT 122 TH/MM3 (150-450); RED BLOOD COUNT 5.36 MIL/MM3 (4.50-5.90); RED CELL DISTRIBUTION WIDTH 15.9 % (11.6-17.2); WHITE BLOOD COUNT 8.5 TH/MM3 (4.0-11.0)
--- NOTE | 2017-07-20 11:31 | PD.CAR.PN ---
CVT Progress Note Subjective/Hospital Course: 07/20/2017 I reviewed the CTA with runoff and compared to the patient's clinical findings. In the patient has uninterrupted inflow into both legs and somewhat ratty SFA bilateral but no significant stenosis. Patient does have trifurcation disease with diffuse atherosclerotic changes in characteristic pattern with small vessel disease with long-standing diabetes mellitus Posterior tibial, anterior tibial and peroneal artery are patent but quite atherosclerotic There is no lesion that can be addressed either by open or endovascular approach because there is no hemodynamically significant stenosis encountered right it is all diffuse disease At this time there is nothing else we can do from a vascular point Would definitely proceed with podiatry surgery as planned and this should heal well for the blood flow is preserved Objective: Vital Signs Date Time Temp Pulse Resp B/P (MAP) Pulse Ox O2 Delivery O2 Flow Rate FiO2 07/20/17 08:00 97.1 83 18 133/55 (81) 92 07/20/17 04:00 98.0 72 18 124/76 (92) 98 07/20/17 00:00 98.0 67 18 115/80 (92) 96 07/19/17 20:45 94 21 07/19/17 20:00 97.3 74 18 109/55 (73) 90 07/19/17 20:00 97.3 74 18 109/55 (73) 90 07/19/17 16:00 97.5 75 19 113/60 (77) 94 07/19/17 12:00 97.7 68 18 106/59 (75) 92 Labs: Laboratory Tests Test 07/20/17 08:50 White Blood Count 8.5 TH/MM3 (4.0-11.0) Red Blood Count 5.36 MIL/MM3 (4.50-5.90) Hemoglobin 16.6 GM/DL (13.0-17.0) Hematocrit 48.0 % (39.0-51.0) Mean Corpuscular Volume 89.6 FL (80.0-100.0) Mean Corpuscular Hemoglobin 31.0 PG (27.0-34.0) Mean Corpuscular Hemoglobin Concent 34.5 % (32.0-36.0) Red Cell Distribution Width 15.9 % (11.6-17.2) Platelet Count 122 TH/MM3 (150-450) Mean Platelet Volume 10.5 FL (7.0-11.0) Neutrophils (%) (Auto) 79.0 % (16.0-70.0) Lymphocytes (%) (Auto) 10.7 % (9.0-44.0) Monocytes (%) (Auto) 10.0 % (0.0-8.0) Eosinophils (%) (Auto) 0.1 % (0.0-4.0) Basophils (%) (Auto) 0.2 % (0.0-2.0) Neutrophils # (Auto) 6.7 TH/MM3 (1.8-7.7) Lymphocytes # (Auto) 0.9 TH/MM3 (1.0-4.8) Monocytes # (Auto) 0.9 TH/MM3 (0-0.9) Eosinophils # (Auto) 0.0 TH/MM3 (0-0.4) Basophils # (Auto) 0.0 TH/MM3 (0-0.2) CBC Comment DIFF FINAL Differential Comment Result Diagram: 07/20/17 0850 07/19/17 0645 Gregg Benítez MD Jul 20, 2017 11:31
[2017-07-20 11:33] LABS: BICARBONATE 30.9 MEQ/L (21.0-32.0); CALCIUM 8.6 MG/DL (8.5-10.1); CREATININE 1.22 MG/DL (0.60-1.30); MAGNESIUM 2.5 MG/DL (1.5-2.5)
--- NOTE | 2017-07-20 11:47 | PD.POD ---
Subjective Pain score: 2 Remarks Doing well has intermittent coughing spells Past Med/Surg/Social History Social History Smoking Status: Former Smoker Objective Vital Signs Vital Signs Date Time Temp Pulse Resp B/P (MAP) Pulse Ox O2 Delivery O2 Flow Rate FiO2 07/20/17 08:00 97.1 83 18 133/55 (81) 92 07/20/17 04:00 98.0 72 18 124/76 (92) 98 07/20/17 00:00 98.0 67 18 115/80 (92) 96 07/19/17 20:45 94 21 07/19/17 20:00 97.3 74 18 109/55 (73) 90 07/19/17 20:00 97.3 74 18 109/55 (73) 90 07/19/17 16:00 97.5 75 19 113/60 (77) 94 07/19/17 12:00 97.7 68 18 106/59 (75) 92 Coded Allergies: No Known Allergies (Unverified , 07/17/17) Medications and IVs Administered Medications Medications (Trade) Dose Ordered Sig/Griffin Route PRN Reason Start Time Stop Time Status Last Admin Dose Admin Sodium Chloride (NS Flush) 2 ml BID IV FLUSH 07/18/17 09:00 07/20/17 08:52 Senna/Docusate Sodium (Tracy-Colace) 1 tab BID PO 07/18/17 11:00 07/20/17 08:51 Aspirin (Aspirin Chew) 81 mg DAILY CHEW 07/18/17 13:00 07/20/17 08:51 Clopidogrel Bisulfate (Plavix) 75 mg DAILY PO 07/18/17 13:00 07/20/17 08:50 Metoprolol Tartrate (Lopressor) 100 mg BID PO 07/18/17 12:15 07/20/17 08:51 Potassium Chloride (KCl) 10 meq BID PO 07/18/17 21:00 07/20/17 08:51 Lisinopril (Prinivil) 40 mg DAILY PO 07/19/17 09:00 07/20/17 08:49 Atorvastatin Calcium (Lipitor) 80 mg DAILY PO 07/19/17 09:00 07/20/17 08:50 Piperacillin Sod/ Tazobactam Sod 100 ml @ 200 mls/hr Q8H IV 07/18/17 16:00 07/20/17 08:49 Insulin Aspart (NovoLOG SUPPLEMENTAL SCALE) 1 ACHS SLIDING SCALE SQ 07/18/17 17:00 07/20/17 08:00 Insulin Aspart (NovoLOG INJ) 20 units AC BREAKFAST SQ 07/19/17 07:00 07/20/17 07:00 Insulin Aspart (NovoLOG INJ) 20 units AC DINNER SQ 07/18/17 16:00 07/19/17 16:00 Insulin Aspart (NovoLOG INJ) 20 units AC LUNCH SQ 07/19/17 11:00 07/19/17 11:00 Albuterol/ Ipratropium (Duoneb Neb) 1 ampule Q6HR WHILE AWAKE NEB NEB 07/18/17 20:00 07/20/17 07:45 Guaifenesin/ Dextromethorphan (Robitussin Dm 200-20 Mg/10 ml Liq) 10 ml Q4H PRN PO cough interfering with rest 07/18/17 22:30 07/20/17 03:27 Insulin Detemir (Levemir Inj) 60 units HS SQ 07/19/17 21:00 07/19/17 21:11 Clindamycin/ Sodium Chloride 50 ml @ 100 mls/hr Q8H IV 07/19/17 20:00 07/20/17 03:27 Sodium Chloride 1,000 ml @ 84 mls/hr [id number] IV 07/19/17 20:00 07/20/17 10:59 Heparin Sodium (Porcine) (Heparin Inj) 5,000 units Q12HR SQ 07/19/17 21:00 07/20/17 10:30 Laboratory Tests Test 07/19/17 06:45 07/20/17 08:50 White Blood Count 8.7 TH/MM3 8.5 TH/MM3 Red Blood Count 5.28 MIL/MM3 5.36 MIL/MM3 Hemoglobin 16.2 GM/DL 16.6 GM/DL Hematocrit 47.4 % 48.0 % Mean Corpuscular Volume 89.9 FL 89.6 FL Mean Corpuscular Hemoglobin 30.6 PG 31.0 PG Mean Corpuscular Hemoglobin Concent 34.1 % 34.5 % Red Cell Distribution Width 16.1 % 15.9 % Platelet Count 126 TH/MM3 122 TH/MM3 Mean Platelet Volume 10.1 FL 10.5 FL Neutrophils (%) (Auto) 90.6 % 79.0 % Lymphocytes (%) (Auto) 6.3 % 10.7 % Monocytes (%) (Auto) 2.8 % 10.0 % Eosinophils (%) (Auto) 0.0 % 0.1 % Basophils (%) (Auto) 0.3 % 0.2 % Neutrophils # (Auto) 7.9 TH/MM3 6.7 TH/MM3 Lymphocytes # (Auto) 0.5 TH/MM3 0.9 TH/MM3 Monocytes # (Auto) 0.2 TH/MM3 0.9 TH/MM3 Eosinophils # (Auto) 0.0 TH/MM3 0.0 TH/MM3 Basophils # (Auto) 0.0 TH/MM3 0.0 TH/MM3 CBC Comment DIFF FINAL DIFF FINAL Differential Comment Laboratory Tests Test 07/19/17 06:45 07/19/17 12:32 07/20/17 08:50 Blood Urea Nitrogen 41 MG/DL 39 MG/DL Creatinine 1.56 MG/DL 1.22 MG/DL Random Glucose 249 MG/DL 203 MG/DL Calcium Level 8.5 MG/DL 8.6 MG/DL Sodium Level 129 MEQ/L 131 MEQ/L Potassium Level 3.8 MEQ/L 3.4 MEQ/L Chloride Level 89 MEQ/L 92 MEQ/L Carbon Dioxide Level 32.4 MEQ/L 30.9 MEQ/L Anion Gap 8 MEQ/L 8 MEQ/L Estimat Glomerular Filtration Rate 46 ML/MIN 61 ML/MIN Hemoglobin A1c 10.6 % Triglycerides Level 134 MG/DL Cholesterol Level 86 MG/DL LDL Cholesterol 41 MG/DL HDL Cholesterol 18.2 MG/DL Cholesterol/HDL Ratio 4.72 RATIO Total Creatine Kinase 969 U/L 527 U/L Creatine Kinase MB 3.9 NG/ML Creatine Kinase MB % 0.4 % Magnesium Level 2.5 MG/DL Last 72 hours Impressions Foot MRI 07/19/17 0000 Signed Impressions: Service Date/Time: Wednesday, July 19, 2017 14:09 - CONCLUSION: 1. No evidence of osteomyelitis at the 1st digit partial amputation site. 2. Mild diffuse soft tissue swelling about the distal forefoot without focal fluid collections seen. 3. Advanced degenerative changes in the calcaneus adjacent to the cuboid articulation and the anterior talar facet with associated subchondral cysts. Anatoliy Mccormick MD Aorta w/Runoff CTA 07/19/17 0000 Signed Impressions: Service Date/Time: Wednesday, July 19, 2017 19:10 - CONCLUSION: 1. No significant aortic occlusive disease. 2. Mild stenosis of the bilateral common iliac origins secondary calcified plaque. 3. Mild tandem stenoses of the distal SFA bilaterally. 4. Bulky calcified plaque in the distal tibioperoneal trunk bilaterally. Otherwise, three-vessel runoff to the feet. 5. Small 1 cm calcified density adjacent to the pancreatic head and away from the common bile duct. This may reflect material in the duodenum or sequela of prior pancreatitis. Jorge Cerda MD Physical Exam Remarks Nonpalpable pulses. Edema present. no increase in temperature compared to contralateral extremity Distal left 2nd digit with edema and small distal ulceration with no active purulent drainage. No erythema. Does not appear to be acutely infected at this time. Sensation absent to light touch. Assessment & Plan A/P Left second digit ulcer hammertoe MRI appears to be no signs of bone infection, chronic hammertoe however processes problems with healing. We discussed possibility of flexor tenotomy to allow some correction of the hammertoe that may alleviate some pressure forces causing ulcer versus amputation of the digit. I will discuss with vascular before making decision. Barron Huerta DPM Jul 20, 2017 11:47
[2017-07-20] MEDS ORDERED: INSULIN DETEMIR 100 UNITS/ML VIAL SQ SCH (12:00)
--- NOTE | 2017-07-20 14:03 | HHI.PR ---
Subjective Remarks Follow-up gram-positive bacteremia. Continues to have back pain. Denies shortness of breath but has cough. States he uses Levemir 51 units twice a day and potassium 40 mEq in the morning and 20 mEq in the evening. Discussed with nursing Objective Vitals Vital Signs Date Time Temp Pulse Resp B/P (MAP) Pulse Ox O2 Delivery O2 Flow Rate FiO2 07/20/17 12:00 97.1 70 19 106/56 (73) 95 07/20/17 08:00 97.1 83 18 133/55 (81) 92 07/20/17 04:00 98.0 72 18 124/76 (92) 98 07/20/17 00:00 98.0 67 18 115/80 (92) 96 07/19/17 20:45 94 21 07/19/17 20:00 97.3 74 18 109/55 (73) 90 07/19/17 20:00 97.3 74 18 109/55 (73) 90 07/19/17 16:00 97.5 75 19 113/60 (77) 94 I/O 07/19/17 07/19/17 07/19/17 07/20/17 07/20/17 07/20/17 07:00 15:00 23:00 07:00 15:00 23:00 Intake Total 1970 ml 747 ml Output Total 325 ml 1200 ml Balance -325 ml 1970 ml -453 ml Intake Oral 1920 ml IV Total 50 ml 747 ml Output Urine Total 325 ml 1200 ml # Voids 2 2 5 # Bowel Movements 0 Result Diagram: 07/20/17 0850 07/20/17 0850 Imaging Last Impressions Foot MRI 07/19/17 0000 Signed Impressions: Service Date/Time: Wednesday, July 19, 2017 14:09 - CONCLUSION: 1. No evidence of osteomyelitis at the 1st digit partial amputation site. 2. Mild diffuse soft tissue swelling about the distal forefoot without focal fluid collections seen. 3. Advanced degenerative changes in the calcaneus adjacent to the cuboid articulation and the anterior talar facet with associated subchondral cysts. Anatoliy Mccormick MD Aorta w/Runoff CTA 07/19/17 0000 Signed Impressions: Service Date/Time: Wednesday, July 19, 2017 19:10 - CONCLUSION: 1. No significant aortic occlusive disease. 2. Mild stenosis of the bilateral common iliac origins secondary calcified plaque. 3. Mild tandem stenoses of the distal SFA bilaterally. 4. Bulky calcified plaque in the distal tibioperoneal trunk bilaterally. Otherwise, three-vessel runoff to the feet. 5. Small 1 cm calcified density adjacent to the pancreatic head and away from the common bile duct. This may reflect material in the duodenum or sequela of prior pancreatitis. Jorge Cerda MD Objective Remarks GENERAL: This is an obese, well-developed patient SKIN: No rashes, ecchymoses or lesions. Cool and dry. CARDIOVASCULAR: Regular rate and rhythm without murmurs, gallops, or rubs. RESPIRATORY: Decreased breath sounds GASTROINTESTINAL: Abdomen soft, non-tender, nondistended.No guarding. No CVA tenderness MUSCULOSKELETAL: Extremities without clubbing, cyanosis, but there is +2 edema left greater than right, status post bilateral great toe partial distal resections, third toe on the left has some edematous changes with ulcer, patient with hyperflexed toes on both feet otherwise, upper extremities however show No joint tenderness, effusion, or edema noted. No calf tenderness. Negative Homans sign bilaterally. NEUROLOGICAL: Awake and alert. Cranial nerves II through XII intact. Motor and sensory grossly within normal limits. Five out of 5 muscle strength in all muscle groups. Normal speech. A/P Problem List: (1) SOB (shortness of breath) ICD Code: R06.02 - Shortness of breath (2) Edema ICD Code: R60.9 - Edema, unspecified (3) Toe infection ICD Code: L08.9 - Local infection of the skin and subcutaneous tissue, unspecified (4) DM2 (diabetes mellitus, type 2) ICD Code: E11.9 - Type 2 diabetes mellitus without complications (5) CO2 retention ICD Code: E87.2 - Acidosis (6) CKD (chronic kidney disease) stage 3, GFR 30-59 ml/min ICD Code: N18.3 - Chronic kidney disease, stage 3 (moderate) (7) LFT elevation ICD Code: R79.89 - Other specified abnormal findings of blood chemistry (8) Fever ICD Code: R50.9 - Fever, unspecified Assessment and Plan Gram-positive bacteremia source not clear. Echocardiogram without vegetations EF of 50%. He has diabetic toe ulcer MRI does not show osteomyelitis but previous wound culture with MRSA and Acinetobacter. We will continue IV Zosyn and agree with IV vancomycin since renal function has improved. Discussed with infectious disease, obtain lumbar spine MRI secondary to back pain to look for discitis/osteomyelitis. DM2 (diabetes mellitus, type 2). Uncontrolled A1c over 10. Continue preprandial insulin and increase Levemir to 60 units at bedtime. Resume Levemir 51 units in the morning. Diabetic education. CO2 retention. This is chronic with history of ANA possible COPD. Will need PFTs. Consider pulmonary consult Acute bronchitis. Clinically improving. History of ANA continue home CPAP, nebulizations status post steroids. Tobacco cessation Chronic bilateral lower extremity pitting edema. Elevation. Hold Lasix secondary to acute kidney injury. Acute kidney injury with rhabdomyolysis. Improved discontinue IV hydration and avoid nephrotoxins. Mild AST elevation. Likely from infection will follow up Possible peripheral vascular disease. CTA with no significant occlusive disease Chronic medical conditions of coronary artery disease and hypertension. Continue outpatient medications as appropriate. Obtain records from PCP DVT prophylaxis with subcu heparin Discharge Planning Rehab versus home health care Dameon Ramos MD Jul 20, 2017 14:03
[2017-07-20] MEDS ORDERED: Vancomycin Consult Pharmacy 1 EA OTHER SCH (14:30)
[2017-07-20] MEDS ORDERED: VANCOMYCIN INJ 2,500 MG in SODIUM CHLORID 0.9% 500 ML INJ 500 ML IV ONE (17:00)
--- NOTE | 2017-07-20 18:06 | MB ---
cc: DELORES RAMOS MD, FRANKLYN F. MD DATE OF CONSULTATION: 07/20/2017 REQUESTING PHYSICIAN: Dr. Ramos. REASON FOR CONSULTATION: Bacteremia. HISTORY OF PRESENT ILLNESS The patient is a 57 year-old white male who presented to the emergency department at [facility] on July 17. He was said to have acute bronchitis. The patient had a cough at the time. He was admitted to [facility] on July 17, and workup was pursued. He had a low grade fever of 100.8 degrees on the evening of 07/17. Plans were for releasing him from the hospital. However, in the sourcing consultant hours of 07/18, he had another temperature spike of 101.8 degrees. The patient also has a wound of the left second toe and he was transferred over to [facility] for evaluation. He had been evaluated by vascular surgery and podiatry. He has a wound of the tuft of the second toe which has been cared for by wound care previously. In the interim blood cultures from 07/17 came back with staph coagulase positive in all four bottles. The patient is complaining of back pain. He has sleep apnea and he wears a C-PAP machine. He states he has to wear it all the time. He said that he had some shaking chills yesterday. An MRI of the foot was performed and it shows no signs of osteomyelitis. He has a chronic hammertoe. The patient is afebrile. Currently he is on clindamycin and Piperacillin/tazobactam. The patient denies nausea, vomiting, abdominal pain or dysuria. PAST MEDICAL HISTORY Diabetes, diabetic neuropathy, obstructive sleep apnea, coronary artery disease, hypertension, history of coronary bypass graft surgery in 2009, history of myocardial infarction x2, hypertension, bilateral great toe distal resection, coronary artery stents. ALLERGIES NO KNOWN DRUG ALLERGIES. MEDICATIONS 1. Clindamycin. 2. Piperacillin / tazobactam. 3. Insulin. 4. DuoNeb. 5. Potassium. 6. Prinivil. 7. Lipitor. 8. Subcutaneous heparin. 9. Aspirin. 10. Plavix. 11. Lopressor. 12. Tracy-Colace. SOCIAL HISTORY Positive tobacco, half-pack per day. No alcohol. Denies illicit drug use. FAMILY HISTORY: Noncontributory. REVIEW OF SYSTEMS Constitutional: Significant for fever and chills. Head, ears, eyes, nose and throat: Denies blurry vision or diplopia. Denies soreness of the throat or difficulty swallowing. Denies neck pain. Cardiovascular: Significant for dyspnea with exertion. Respiratory: Significant for cough and shortness of breath. Gastrointestinal: Denies abdominal pain. Genitourinary: Denies urgency or frequency. Musculoskeletal: Denies muscle aches or pains. Hematopoietic: Denies easy bruising or bleeding. Integumentary. Denies skin rash or itching. Neurologic: Denies problems with coordination. Psychiatric: Denies mood changes. PHYSICAL EXAMINATION This is a morbidly obese male who is laying in bed and is awake and alert. He has a C-PAP machine in place and is on 2 liters oxygen. Vital signs: Include temperature 97.1, BP 106/56, respirations 18, heart rate 70. HEENT: Head is atraumatic. Extraocular movements grossly intact, pupils reactive to light. No icterus. No conjunctival erythema. Oropharynx: mucosa is moist. Neck: Supple without adenopathy or swelling. Lungs: Clear breath sounds which are slightly diminished. Heart: Regular S1-S2. No audible murmurs, rubs or gallops. Abdomen: Bowel sounds present, soft, morbidly obese. The patient has very large abdominal girth. Rectal: Not performed. Extremities: No clubbing or cyanosis. The left second toe has a tiny ulceration at the tuft. Surrounding that is some maceration of the skin at the tuft of the toe. The toes has a hammertoe deformity. No significant erythema. Skin: No diffuse rash except for erythematous hue at the chest, neck and face. Neuro: No gross focal findings. Psychiatric: The patient is calm and cooperative. LABORATORY DATA WBC 8.5, platelets 122, hemoglobin 16.6, 79% neutrophils, creatinine 1.22, estimated GFR 61, sodium 131. Urinalysis unremarkable. IMPRESSION 1. Bacteremia due to staph coagulase-positive. 2. The patient had fever and he has a wound at the left second toe which has been managed by wound care. It is unclear whether the second toe wound is the cause of the bacteremia. 3. The patient has no sputum production and it appears that he has had a chronic cough. 4. Back pain, unknown etiology. RECOMMENDATIONS 1. Begin vancomycin intravenous. 2. Discontinue clindamycin. 3. Obtain MRI of the back to evaluate for potential seeding from bacteremia in association with the back pain. 4. Monitor sensitivity and identity of the blood cultures. 5. Monitor clinical status, and repeat the blood cultures again tomorrow. 6. Obtain sedimentation rate. Thank you for this consultation. The patient's progress will be monitored and further recommendations will be given upon followup if necessary. Ronan Monte MD FD/WESLEY /2:11 PM /5:41 PM MTDRobert
[2017-07-20] MEDS ORDERED: GADODIAMIDE PF 287 MG/ML 20 ML VIAL (for RAD MRI) IVCONTRAST ONE (20:11)
--- NOTE | 2017-07-20 20:37 | RADRPT ---
EXAM DATE/TIME: 07/20/2017 19:50 [place] COMPARISON: CTA RUNOFF W 3D RECON, July 19, 2017, 19:10. INDICATIONS : Osteomyelitis. Back pain. CONTRAST: 20 cc Omniscan (gadodiamide) IV MEDICAL HISTORY : Hypertension. Diabetes mellitus type 2. SURGICAL HISTORY : Coronary artery stent. CABG ENCOUNTER: Initial ACUITY: 1 day PAIN SCORE: 5/10 LOCATION: Paraspinal TECHNIQUE: Multiplanar multisequence MRI of the lumbar spine was performed with and without contrast. FINDINGS: The most caudal appearing lumbar vertebra is numbered as L5. VERTEBRAE: There is a 16mm bone lesion in the right aspect of the L5 vertebral body. Centrally it is hypointense on T1-weighted imaging and T2 hyperintense with a thin rim of T1 hyperintense signal. This lesion de monstrates internal enhancement. Otherwise, bone marrow signal within the remaining vertebral bodies is within normal limits. Vertebral body height is maintained. There is no anterolisthesis or retrolis thesis. CONUS: Normal level and configuration. POST CONTRAST: There is enhancement within the 16mm bone lesion in the right vertebral body. T12-L1: No disc herniation, canal stenosis, or neural foraminal stenosis. L1-L2: No disc herniation, canal stenosis, or neural foraminal stenosis. L2-L3: No disc herniation, canal stenosis, or neural foraminal stenosis. There is mild facet hypertrophy. L3-L4: No disc herniation, canal stenosis, or neural foraminal stenosis. There is facet hypertrophy. L4-L5: No disc herniation, canal stenosis, or neural foraminal stenosis. There is moderate facet hypertrophy . L5-S1: No disc herniation, canal stenosis, or neural foraminal stenosis. There is moderate facet hypertrophy , left greater than right. The visualized paraspinous structures demonstrate no acute finding. CONCLUSION: 1. There are no imaging findings to indicate a discitis or osteomyelitis. Additionally, there is no s evgeny canal stenosis or neural foraminal narrowing. There is mild to moderate facet arthrosis in the lower lumbar spine. 2. There is a 16mm nonspecific bone lesion in the right aspect of the L5 vertebral body. It is occult on prior CT. One consideration is an atypical hemangioma. However, more concerning lesions cannot be excluded. Consider bone scan for further evaluation of abnormal activity in this area. King Donato MD on July 20, 2017 at 20:29 Board Certified Radiologist. This report was verified electronically.
[2017-07-20] MEDS: INSULIN DETEMIR 100 UNITS/ML VIAL SQ SCH (21:09)
[2017-07-21] VITALS (7 sets, daily range): BP systolic 129–164; BP diastolic 55–77; PULSE 74–89; RESP 18–22; TEMP 97.3–99; O2SAT 92–100
[2017-07-21] MEDS ORDERED: LACTATED RINGER'S 1000 ML IV PRN (05:30)
[2017-07-21] MEDS ORDERED: CHLORHEXIDINE GLUCONATE 2 % 1 PACK (2 CLOTHS) TOPICAL PRN (05:30)
[2017-07-21] MEDS ORDERED: POVIDONE IODINE 5% (ANTISEPSIS KIT) 4 APPLICATIONS EACH NARE PRN (05:30)
[2017-07-21] MEDS ORDERED: SODIUM CHLORID 0.9% 500 ML IV PRN (05:30)
[2017-07-21] MEDS: INSULIN ASPART 1,000 UNITS/10 ML VIAL SQ SCH ×3 (07:00→18:00)
[2017-07-21] MEDS: RESP: ALBUTEROL 2.5 MG/IPRATROPIUM 0.5 MG NEB (SCH) NEB ×3 (07:32→20:31)
[2017-07-21] MEDS ORDERED: BUPIVACAINE HCL PF 0.25% 30 ML VIAL ONE (07:34)
[2017-07-21] MEDS: INSULIN ASPART SUPPLEMENTAL SCALE SQ SCH ×4 (08:00→21:00)
[2017-07-21] MEDS: PIPERACIL-TAZO 4.5 GM PREMIX 100 ML IV SCH ×2 (08:00→16:23)
[2017-07-21] MEDS ORDERED: KETAMINE HCL 500 MG/5 ML VIAL ONE (08:27)
[2017-07-21] MEDS: DOCUSATE SODIUM 50 MG/SENNA 8.6 MG TAB PO SCH ×2 (09:00→21:00)
[2017-07-21] MEDS: POTASSIUM CHLORIDE 10 MEQ CONTROLLED RELEASE TAB PO SCH ×2 (09:00→21:42)
[2017-07-21] MEDS: HEPARIN SODIUM - SQ 10,000 UNITS/ML VIAL SQ SCH ×2 (09:00→21:00)
[2017-07-21] MEDS: SODIUM CHLORIDE 0.9% FLUSH 10 ML FLUSH IV FLUSH SCH ×2 (09:00→21:47)
--- NOTE | 2017-07-21 09:14 | EKG ---
Date Performed: 07/21/2017 Time Performed: 05:54:14 PTAGE: 57 years EKG: Ectopic atrial rhythm. Leftward axis Nonspecific intraventricular conduction delay Inferior infarct - age undetermined Septal and lateral ST-T changes are nonspecific Abnormal ECG NO PREVIOUS TRACING DOCTOR: Piyush Delgado Interpretating Date/Time 07/21/2017 09:13:27
[2017-07-21] MEDS ORDERED: MIDAZOLAM HCL 2 MG/2 ML VIAL ONE (09:20)
--- NOTE | 2017-07-21 09:25 | HHI.PR ---
Immediate Post Op Note Procedure Date: Jul 21, 2017 Pre Op Diagnosis: Left 2nd digit ulcer infection hammertoe Post Op Diagnosis: same Surgeon: Barron Gilmore Exhibits Manager(s): scrub Procedure: Left 2nd digit amputation Findings: viable tissue at amp site no obvious infection Complications: none Specimen(s) removed: left 2nd digit for path and deep wd cx at the 2nd MPJ Estimated blood loss: less 5mL Anesthesia: MAC, Local Drains: None Fluids: see anesthesia IVF Tourniquet time (min at mmHg) 10 min 250mmhg Patient Condition: Fair Implant/Devices: SEE IMPLANT LOG (if applicable) Date/Time of Procedure: SEE SURGICAL CARE RECORD Barron GilmoreM Jul 21, 2017 09:25
[2017-07-21] MEDS ORDERED: DO NOT ADM ANY ANTICOAGULANT DRUGS PRN (09:30)
[2017-07-21] MEDS: METOPROLOL TARTRATE 100 MG TAB PO SCH ×2 (11:22→21:42)
[2017-07-21] MEDS: CLOPIDOGREL 75 MG TAB PO SCH (11:23)
[2017-07-21] MEDS: LISINOPRIL 20 MG TAB PO SCH (11:23)
[2017-07-21] MEDS: ASPIRIN 81 MG CHEW TAB CHEW SCH (11:23)
[2017-07-21] MEDS: ATORVASTATIN 40 MG TAB PO SCH (11:24)
[2017-07-21] MEDS ORDERED: INSULIN DETEMIR 100 UNITS/ML VIAL SQ ONE (11:30)
[2017-07-21] MEDS ORDERED: LIDOCAINE HCL 1% PF 5 ML SYRINGE OTHER ONE (12:00)
[2017-07-21] MEDS ORDERED: PROPOFOL 200 MG/20 ML AMP IV ONE (12:00)
[2017-07-21] MEDS: VANCOMYCIN INJ 2,000 MG in SODIUM CHLORID 0.9% 500 ML INJ 500 ML IV SCH (12:29)
--- NOTE | 2017-07-21 14:55 | HHI.PR ---
Subjective Remarks Follow-up MRSA bacteremia. Improving right lower back pain. No shortness of breath with improving cough. Patient hypoglycemic this morning as he was made n.p.o. Discussed with nursing and podiatry Objective Vitals Vital Signs Date Time Temp Pulse Resp B/P (MAP) Pulse Ox O2 Delivery O2 Flow Rate FiO2 07/21/17 14:29 94 cpap 2.00 07/21/17 12:00 97.3 80 19 135/77 (96) 95 07/21/17 09:45 98.2 77 17 118/62 (80) 97 Nasal Cannula 07/21/17 09:30 77 18 121/62 (81) 95 Nasal Cannula 07/21/17 09:15 97.6 78 18 116/58 (77) 95 Nasal Cannula 07/21/17 08:00 97.4 74 18 164/73 (103) 96 07/21/17 05:30 98.1 80 22 130/60 (83) 100 07/21/17 00:20 97.9 89 20 129/62 (84) 100 07/20/17 21:20 98.4 92 19 134/63 (86) 97 07/20/17 20:39 96 07/20/17 16:00 97.2 80 19 135/63 (87) 96 I/O 07/20/17 07/20/17 07/20/17 07/21/17 07/21/17 07/21/17 07:00 15:00 23:00 07:00 15:00 23:00 Intake Total 747 ml 1000 ml 500 ml 500 ml Output Total 1200 ml 625 ml 5 ml Balance -453 ml 375 ml 500 ml 495 ml Intake Oral 1000 ml 500 ml IV Total 747 ml 0 ml Other 500 ml Output Urine Total 1200 ml 625 ml 0 ml Estimated Blood Loss 5 ml # Voids 5 1 2 # Bowel Movements 0 0 Result Diagram: 07/20/17 0850 07/20/17 0850 Imaging Last Impressions Lumbar Spine MRI 07/20/17 0000 Signed Impressions: Service Date/Time: Thursday, July 20, 2017 19:50 - CONCLUSION: 1. There are no imaging findings to indicate a discitis or osteomyelitis. Additionally, there is no spinal canal stenosis or neural foraminal narrowing. There is mild to moderate facet arthrosis in the lower lumbar spine. 2. There is a 16mm nonspecific bone lesion in the right aspect of the L5 vertebral body. It is occult on prior CT. One consideration is an atypical hemangioma. However, more concerning lesions cannot be excluded. Consider bone scan for further evaluation of abnormal activity in this area. King Donato MD Foot MRI 07/19/17 0000 Signed Impressions: Service Date/Time: Wednesday, July 19, 2017 14:09 - CONCLUSION: 1. No evidence of osteomyelitis at the 1st digit partial amputation site. 2. Mild diffuse soft tissue swelling about the distal forefoot without focal fluid collections seen. 3. Advanced degenerative changes in the calcaneus adjacent to the cuboid articulation and the anterior talar facet with associated subchondral cysts. Anatoliy Mccormick MD Aorta w/Runoff CTA 07/19/17 0000 Signed Impressions: Service Date/Time: Wednesday, July 19, 2017 19:10 - CONCLUSION: 1. No significant aortic occlusive disease. 2. Mild stenosis of the bilateral common iliac origins secondary calcified plaque. 3. Mild tandem stenoses of the distal SFA bilaterally. 4. Bulky calcified plaque in the distal tibioperoneal trunk bilaterally. Otherwise, three-vessel runoff to the feet. 5. Small 1 cm calcified density adjacent to the pancreatic head and away from the common bile duct. This may reflect material in the duodenum or sequela of prior pancreatitis. Jorge Cerda MD Objective Remarks GENERAL: This is an obese, well-developed patient SKIN: No rashes, ecchymoses or lesions. Cool and dry. CARDIOVASCULAR: Regular rate and rhythm without murmurs, gallops, or rubs. RESPIRATORY: Decreased breath sounds GASTROINTESTINAL: Abdomen soft, non-tender, nondistended.No guarding. No CVA tenderness MUSCULOSKELETAL: Extremities without clubbing, cyanosis, left foot with dry dressing no calf tenderness. Negative Homans sign bilaterally. NEUROLOGICAL: Awake and alert. Cranial nerves II through XII intact. Motor and sensory grossly within normal limits. Five out of 5 muscle strength in all muscle groups. Normal speech. Procedures Left second digit amputation A/P Problem List: (1) SOB (shortness of breath) ICD Code: R06.02 - Shortness of breath (2) Edema ICD Code: R60.9 - Edema, unspecified (3) Toe infection ICD Code: L08.9 - Local infection of the skin and subcutaneous tissue, unspecified (4) DM2 (diabetes mellitus, type 2) ICD Code: E11.9 - Type 2 diabetes mellitus without complications (5) CO2 retention ICD Code: E87.2 - Acidosis (6) CKD (chronic kidney disease) stage 3, GFR 30-59 ml/min ICD Code: N18.3 - Chronic kidney disease, stage 3 (moderate) (7) LFT elevation ICD Code: R79.89 - Other specified abnormal findings of blood chemistry (8) Fever ICD Code: R50.9 - Fever, unspecified Assessment and Plan MRSA bacteremia likely from toe ulcer. Echocardiogram without vegetations EF of 50%. He has diabetic toe ulcer MRI does not show osteomyelitis but previous wound culture with MRSA and Acinetobacter status post second digit amputation . We will continue IV Zosyn and IV vancomycin since renal function has improved. Lumbar spine MRI no evidence of discitis/osteomyelitis but L5 vertebral body lesion and needs elective bone scan. Repeat CBC and BMP in the morning DM2 (diabetes mellitus, type 2). Uncontrolled A1c over 10. Patient hypoglycemic this morning. Decrease Levemir to 51 units twice a day and hold preprandial insulin this morning. Diabetic education. CO2 retention. This is chronic with history of ANA possible COPD. Will need PFTs. Consider pulmonary consult Acute bronchitis. Clinically improving. History of ANA continue home CPAP, nebulizations status post steroids. Tobacco cessation Chronic bilateral lower extremity pitting edema. Elevation. Hold Lasix secondary to acute kidney injury. Acute kidney injury with rhabdomyolysis. Improved discontinue IV hydration and avoid nephrotoxins. Mild AST elevation. Likely from infection will follow up Possible peripheral vascular disease. CTA with no significant occlusive disease Chronic medical conditions of coronary artery disease and hypertension. Continue outpatient medications as appropriate. Obtain records from PCP DVT prophylaxis with subcu heparin Discharge Planning Rehab versus home health care Dameon Ramos MD Jul 21, 2017 14:55
--- NOTE | 2017-07-21 14:58 | HHI.IDPN ---
Note Infectious Disease Note Patient says he feels better. Afebrile. Denies chills. Using his CPAP machine. No nausea. Back pain is the same. Blood culture identified as MRSA. 2D ECHO showed no valve vegetation. Patient is a 57 year-old white male who presented to the emergency department at [facility] on July 17. He was said to have acute bronchitis. The patient had a cough at the time. He was admitted to [facility] on July 17, and workup was pursued. He had a low grade fever of 100.8 degrees on the evening of 07/17. He has a wound of the tuft of the second toe which has been cared for by wound care previously. Blood cultures from 07/17 came back with staph coagulase positive in all four bottles. PAST MEDICAL HISTORY Diabetes, diabetic neuropathy, obstructive sleep apnea, coronary artery disease, hypertension, history of coronary bypass graft surgery in 2009, history of myocardial infarction x2, hypertension, bilateral great toe distal resection, coronary artery stents. ALLERGIES NO KNOWN DRUG ALLERGIES. MEDICATIONS 1. Vancomycin 2. Piperacillin / tazobactam. Current Medications Medications (Trade) Dose Ordered Sig/Griffin Route PRN Reason Start Time Stop Time Status Last Admin Dose Admin Sodium Chloride (NS Flush) 2 ml UNSCH PRN IV FLUSH FLUSH AFTER USING IV ACCESS 07/18/17 06:45 Sodium Chloride (NS Flush) 2 ml BID IV FLUSH 07/18/17 09:00 07/20/17 21:11 Acetaminophen (Tylenol) 650 mg Q4H PRN PO TEMP > 100.4 07/18/17 06:45 Ondansetron HCl (Zofran Inj) 4 mg Q6H PRN IVP NAUSEA OR VOMITING 07/18/17 06:45 Naloxone HCl (Narcan Inj) 0.4 mg UNSCH PRN IV PUSH SEE LABEL COMMENTS 07/18/17 06:45 Senna/Docusate Sodium (Tracy-Colace) 1 tab BID PO 07/18/17 11:00 07/20/17 08:51 Magnesium Hydroxide (Milk Of Magnaiden Liq) 30 ml Q12H PRN PO Mild constipation 07/18/17 06:45 Sennosides (Senokot) 17.2 mg Q12H PRN PO Moderate constipation 07/18/17 06:45 Bisacodyl (Dulcolax Supp) 10 mg DAILY PRN RECTAL SEVERE CONSITIPATION 07/18/17 06:45 Lactulose (Lactulose Liq) 30 ml DAILY PRN PO SEVERE CONSITIPATION 07/18/17 06:45 Aspirin (Aspirin Chew) 81 mg DAILY CHEW 07/18/17 13:00 07/21/17 11:23 Clopidogrel Bisulfate (Plavix) 75 mg DAILY PO 07/18/17 13:00 07/21/17 11:23 Metoprolol Tartrate (Lopressor) 100 mg BID PO 07/18/17 12:15 07/21/17 11:22 Potassium Chloride (KCl) 10 meq BID PO 07/18/17 21:00 07/20/17 21:11 Patient Own Medication PT OWN MED: TESTOSTERONE ENANTH... Q15D IM 07/18/17 14:00 Future Hold Lisinopril (Prinivil) 40 mg DAILY PO 07/19/17 09:00 07/21/17 11:23 Atorvastatin Calcium (Lipitor) 80 mg DAILY PO 07/19/17 09:00 07/21/17 11:24 Piperacillin Sod/ Tazobactam Sod 100 ml @ 200 mls/hr Q8H IV 07/18/17 16:00 07/21/17 08:00 Dextrose (D50w (Vial) Inj) 50 ml UNSCH PRN IV PUSH HYPOGLYCEMIA-SEE COMMENTS 07/18/17 14:30 07/21/17 07:27 Glucagon (Glucagon Inj) 1 mg UNSCH PRN OTHER HYPOGLYCEMIA-SEE COMMENTS 07/18/17 14:30 Insulin Aspart (NovoLOG SUPPLEMENTAL SCALE) 1 ACHS SLIDING SCALE SQ 07/18/17 17:00 07/20/17 12:44 Insulin Aspart (NovoLOG INJ) 20 units AC BREAKFAST SQ 07/19/17 07:00 07/20/17 07:00 Insulin Aspart (NovoLOG INJ) 20 units AC DINNER SQ 07/18/17 16:00 07/20/17 16:00 Insulin Aspart (NovoLOG INJ) 20 units AC LUNCH SQ 07/19/17 11:00 07/20/17 11:00 Albuterol/ Ipratropium (Duoneb Neb) 1 ampule Q6HR WHILE AWAKE NEB NEB 07/18/17 20:00 07/21/17 14:27 Albuterol/ Ipratropium (Duoneb Neb) 1 ampule Q2HR NEB PRN NEB DYSPNEA 07/18/17 14:30 07/20/17 20:39 Guaifenesin/ Dextromethorphan (Robitussin Dm 200-20 Mg/10 ml Liq) 10 ml Q4H PRN PO cough interfering with rest 07/18/17 22:30 07/20/17 21:10 Heparin Sodium (Porcine) (Heparin Inj) 5,000 units Q12HR SQ 07/19/17 21:00 07/20/17 10:30 Pharmacy Profile Note 0 ml @ 0 mls/hr UNSCH OTHER 07/20/17 14:30 Vancomycin HCl 2000 mg/Sodium Chloride 520 ml @ 250 mls/hr Q18H IV 07/21/17 11:00 07/21/17 12:29 Miscellaneous Information SPECIFIC LAB TO BE CORRY... ONCE ONCE .XX 07/23/17 22:45 07/23/17 22:46 Lactated Ringer's 1,000 ml @ 30 mls/hr Q24H PRN IV SEE LABEL COMMENTS 07/21/17 05:30 07/24/17 05:29 Sodium Chloride 500 ml @ 30 mls/hr [id number] PRN IV SEE LABEL COMMENTS 07/21/17 05:30 07/24/17 05:29 Povidone Iodine (Betadine 5% Antisepsis Kit) 1 applic SKIN LAP BONDER PRN EACH NARE SEE LABEL COMMENTS 07/21/17 05:30 07/24/17 05:29 Chlorhexidine Gluconate (Chlorhexidine 2% Cloth) 3 pack SKIN LAP BONDER PRN TOPICAL SEE LABEL COMMENTS 07/21/17 05:30 07/24/17 05:29 Miscellaneous Information ALL NURSING DEPARTME... UNSCH PRN .XX SEE LABEL COMMENTS 07/21/17 09:30 07/22/17 09:29 Insulin Detemir (Levemir Inj) 51 units HS SQ 07/21/17 21:00 Insulin Detemir (Levemir Inj) 51 units DAILYAC SQ 07/22/17 08:00 SOCIAL HISTORY Positive tobacco, half-pack per day. No alcohol. Denies illicit drug use. IMAGING: Lumbar Spine MRI 07/20/17 0000 Signed Impressions: Service Date/Time: Thursday, July 20, 2017 19:50 - CONCLUSION: 1. There are no imaging findings to indicate a discitis or osteomyelitis. Additionally, there is no spinal canal stenosis or neural foraminal narrowing. There is mild to moderate facet arthrosis in the lower lumbar spine. 2. There is a 16mm nonspecific bone lesion in the right aspect of the L5 vertebral body. It is occult on prior CT. One consideration is an atypical hemangioma. However, more concerning lesions cannot be excluded. Consider bone scan for further evaluation of abnormal activity in this area. King Donato MD Foot MRI 07/19/17 0000 Signed Impressions: Service Date/Time: Wednesday, July 19, 2017 14:09 - CONCLUSION: 1. No evidence of osteomyelitis at the 1st digit partial amputation site. 2. Mild diffuse soft tissue swelling about the distal forefoot without focal fluid collections seen. 3. Advanced degenerative changes in the calcaneus adjacent to the cuboid articulation and the anterior talar facet with associated subchondral cysts. Anatoliy Mccormick MD Aorta w/Runoff CTA 07/19/17 0000 Signed Impressions: Service Date/Time: Wednesday, July 19, 2017 19:10 - CONCLUSION: 1. No significant aortic occlusive disease. 2. Mild stenosis of the bilateral common iliac origins secondary calcified plaque. 3. Mild tandem stenoses of the distal SFA bilaterally. 4. Bulky calcified plaque in the distal tibioperoneal trunk bilaterally. Otherwise, three-vessel runoff to the feet. 5. Small 1 cm calcified density adjacent to the pancreatic head and away from the common bile duct. This may reflect material in the duodenum or sequela of prior pancreatitis. Jorge Cerda MD PHYSICAL EXAMINATION GENERAL: Awake and alert. He has a C-PAP machine in place on 2 liters oxygen. HEENT: Head is atraumatic. Extraocular movements grossly intact, pupils reactive to light. No icterus. No conjunctival erythema. Oropharynx: mucosa is moist. Neck: Supple without adenopathy or swelling. Lungs: Clear breath sounds which are slightly diminished. Heart: Regular S1-S2. No audible murmurs, rubs or gallops. Abdomen: Bowel sounds present, soft, morbidly obese. The patient has very large abdominal girth. Extremities: No clubbing or cyanosis. The left second toe is now post amputation. Skin: No diffuse rash except for erythematous hue at the chest, neck and face. Neuro: No gross focal findings. Psychiatric: Calm and cooperative. IMPRESSION 1. Bacteremia due to MRSA. most likely the source of the bacteremia. 2. Back pain, unknown etiology. Appears to be unrelated to the bacteremia. RECOMMENDATIONS 1. Continue vancomycin. 2. Monitor the blood cultures. 3. Monitor the foot wound culture. 4. Monitor temp. 5. Monitor clinical status. Ronan Monte MD Jul 21, 2017 14:58
[2017-07-21] MEDS: guaiFENesin/DEXTROMETHORPHAN 200 MG/20 MG/10 ML CUP PO PRN (18:30)
[2017-07-21] MEDS: INSULIN DETEMIR 100 UNITS/ML VIAL SQ SCH (20:21)
[2017-07-22] VITALS (8 sets, daily range): BP systolic 100–167; BP diastolic 54–77; PULSE 63–78; RESP 18–22; TEMP 97.3–98.7; O2SAT 92–96
[2017-07-22] MEDS: PIPERACIL-TAZO 4.5 GM PREMIX 100 ML IV SCH ×4 (00:42→23:11)
[2017-07-22] MEDS: VANCOMYCIN INJ 2,000 MG in SODIUM CHLORID 0.9% 500 ML INJ 500 ML IV SCH ×2 (04:38→23:14)
[2017-07-22] MEDS: guaiFENesin/DEXTROMETHORPHAN 200 MG/20 MG/10 ML CUP PO PRN ×3 (04:48→19:17)
[2017-07-22 07:12] LABS: AUTOMATED NEUTROPHIL # 6.3 TH/MM3 (1.8-7.7); BASOPHIL % 0.4 % (0.0-2.0); HEMATOCRIT 46.6 % (39.0-51.0); HEMOGLOBIN 15.6 GM/DL (13.0-17.0); LYMPH % 12.3 % (9.0-44.0); MEAN CELL VOLUME 90.1 FL (80.0-100.0); MEAN CORPUSCULAR HEMOGLOBIN 30.2 PG (27.0-34.0); MEAN CORPUSCULAR HGB CONC 33.5 % (32.0-36.0); MONO % 8.9 % (0.0-8.0); MONOCYTE # 0.7 TH/MM3 (0-0.9); NEUT % 78.4 % (16.0-70.0); PLATELET COUNT 132 TH/MM3 (150-450); RED BLOOD COUNT 5.17 MIL/MM3 (4.50-5.90); RED CELL DISTRIBUTION WIDTH 15.7 % (11.6-17.2)
[2017-07-22 07:54] LABS: BICARBONATE 29.2 MEQ/L (21.0-32.0); CALCIUM 8.6 MG/DL (8.5-10.1); CREATININE 1.08 MG/DL (0.60-1.30); MAGNESIUM 2.6 MG/DL (1.5-2.5)
[2017-07-22] MEDS: INSULIN ASPART SUPPLEMENTAL SCALE SQ SCH ×4 (08:00→21:00)
[2017-07-22] MEDS: DOCUSATE SODIUM 50 MG/SENNA 8.6 MG TAB PO SCH ×2 (09:00→21:00)
[2017-07-22] MEDS: HEPARIN SODIUM - SQ 10,000 UNITS/ML VIAL SQ SCH ×2 (09:00→21:00)
[2017-07-22] MEDS: POTASSIUM CHLORIDE 10 MEQ CONTROLLED RELEASE TAB PO SCH ×2 (09:09→21:23)
[2017-07-22] MEDS: CLOPIDOGREL 75 MG TAB PO SCH (09:10)
[2017-07-22] MEDS: METOPROLOL TARTRATE 100 MG TAB PO SCH ×2 (09:10→21:23)
[2017-07-22] MEDS: SODIUM CHLORIDE 0.9% FLUSH 10 ML FLUSH IV FLUSH SCH ×2 (09:11→21:24)
[2017-07-22] MEDS: ASPIRIN 81 MG CHEW TAB CHEW SCH (09:11)
[2017-07-22] MEDS: ATORVASTATIN 40 MG TAB PO SCH (09:11)
[2017-07-22] MEDS: LISINOPRIL 20 MG TAB PO SCH (09:11)
[2017-07-22] MEDS: INSULIN DETEMIR 100 UNITS/ML VIAL SQ SCH ×2 (09:12→21:25)
[2017-07-22] MEDS: INSULIN ASPART 1,000 UNITS/10 ML VIAL SQ SCH ×3 (09:27→16:26)
[2017-07-22] MEDS ORDERED: ZINC OXIDE 40% OINT 60 GM TUBE TOPICAL PRN (10:45)
--- NOTE | 2017-07-22 10:49 | HHI.PR ---
Subjective Remarks Patient tells me that he has "the runs ". He has gone twice to the bathroom. No nausea or vomiting. Cough is improved. Objective Vitals Vital Signs Date Time Temp Pulse Resp B/P (MAP) Pulse Ox O2 Delivery O2 Flow Rate FiO2 07/22/17 08:23 97.5 70 20 167/77 (107) 92 07/22/17 04:00 98.2 71 22 100/54 (69) 93 07/22/17 00:00 98.7 73 22 122/63 (82) 95 07/21/17 20:31 92 Nasal Cannula 2.00 07/21/17 20:00 99.0 87 22 135/55 (81) 94 07/21/17 14:29 94 cpap 2.00 07/21/17 12:00 97.3 80 19 135/77 (96) 95 I/O 07/21/17 07/21/17 07/21/17 07/22/17 07/22/17 07/22/17 07:00 15:00 23:00 07:00 15:00 23:00 Intake Total 500 ml 500 ml Output Total 5 ml Balance 500 ml 495 ml Intake Oral 500 ml IV Total 0 ml Other 500 ml Output Urine Total 0 ml Estimated Blood Loss 5 ml # Voids 2 # Bowel Movements 0 Result Diagram: 07/22/17 0636 07/22/17 0636 Imaging Last Impressions Lumbar Spine MRI 07/20/17 0000 Signed Impressions: Service Date/Time: Thursday, July 20, 2017 19:50 - CONCLUSION: 1. There are no imaging findings to indicate a discitis or osteomyelitis. Additionally, there is no spinal canal stenosis or neural foraminal narrowing. There is mild to moderate facet arthrosis in the lower lumbar spine. 2. There is a 16mm nonspecific bone lesion in the right aspect of the L5 vertebral body. It is occult on prior CT. One consideration is an atypical hemangioma. However, more concerning lesions cannot be excluded. Consider bone scan for further evaluation of abnormal activity in this area. King Donato MD Foot MRI 07/19/17 0000 Signed Impressions: Service Date/Time: Wednesday, July 19, 2017 14:09 - CONCLUSION: 1. No evidence of osteomyelitis at the 1st digit partial amputation site. 2. Mild diffuse soft tissue swelling about the distal forefoot without focal fluid collections seen. 3. Advanced degenerative changes in the calcaneus adjacent to the cuboid articulation and the anterior talar facet with associated subchondral cysts. Anatoliy Mccormick MD Aorta w/Runoff CTA 07/19/17 0000 Signed Impressions: Service Date/Time: Wednesday, July 19, 2017 19:10 - CONCLUSION: 1. No significant aortic occlusive disease. 2. Mild stenosis of the bilateral common iliac origins secondary calcified plaque. 3. Mild tandem stenoses of the distal SFA bilaterally. 4. Bulky calcified plaque in the distal tibioperoneal trunk bilaterally. Otherwise, three-vessel runoff to the feet. 5. Small 1 cm calcified density adjacent to the pancreatic head and away from the common bile duct. This may reflect material in the duodenum or sequela of prior pancreatitis. Jorge Cerda MD Objective Remarks GENERAL: This is an obese, well-developed patient CARDIOVASCULAR: Regular rate and rhythm without murmurs RESPIRATORY: Decreased breath sounds GASTROINTESTINAL: Abdomen soft, non-tender, nondistended. No CVA tenderness MUSCULOSKELETAL: left foot with dry dressing/in boot no calf tenderness. Negative Homans sign bilaterally. NEUROLOGICAL: Awake and alert. Motor and sensory grossly within normal limits. Normal speech. Procedures Left second digit amputation A/P Problem List: (1) SOB (shortness of breath) ICD Code: R06.02 - Shortness of breath (2) Edema ICD Code: R60.9 - Edema, unspecified (3) Toe infection ICD Code: L08.9 - Local infection of the skin and subcutaneous tissue, unspecified (4) DM2 (diabetes mellitus, type 2) ICD Code: E11.9 - Type 2 diabetes mellitus without complications (5) CO2 retention ICD Code: E87.2 - Acidosis (6) CKD (chronic kidney disease) stage 3, GFR 30-59 ml/min ICD Code: N18.3 - Chronic kidney disease, stage 3 (moderate) (7) LFT elevation ICD Code: R79.89 - Other specified abnormal findings of blood chemistry (8) Fever ICD Code: R50.9 - Fever, unspecified Assessment and Plan MRSA bacteremia likely from toe ulcer. Echocardiogram without vegetations EF of 50%. He has diabetic toe ulcer MRI does not show osteomyelitis but previous wound culture with MRSA and Acinetobacter status post second digit amputation . was on both IV Zosyn and IV vancomycin but ID recommends just IV vanco. Lumbar spine MRI no evidence of discitis/osteomyelitis but L5 vertebral body lesion and needs elective bone scan. Repeat CBC and BMP in the morning DM2 (diabetes mellitus, type 2). Uncontrolled A1c over 10. on Levemir to 51 units twice a day. Diabetic education. CO2 retention. This is chronic with history of ANA possible COPD. Will need PFTs. Consider pulmonary consult if worsening Acute bronchitis. Clinically improving. History of ANA continue home CPAP, nebulizations status post steroids. Tobacco cessation Chronic bilateral lower extremity pitting edema. Elevation. Hold Lasix secondary to acute kidney injury. Acute kidney injury with rhabdomyolysis. Improved, HLIV and avoid nephrotoxins. Mild AST elevation. Likely from infection will follow up Possible peripheral vascular disease. CTA with no significant occlusive disease Chronic medical conditions of coronary artery disease and hypertension. Continue outpatient medications as appropriate. Obtain records from PCP DVT prophylaxis with subcu heparin Discharge Planning Blood cx and wound/fluid cx pending. awaiting final recs from Gayle Block MD Jul 22, 2017 10:49
[2017-07-22] MEDS: LACTOBACILLUS ACIDOPHILUS TAB PO SCH ×2 (11:18→16:11)
[2017-07-22] MEDS ORDERED: INSULIN DETEMIR 100 UNITS/ML VIAL SQ SCH (12:00)
--- NOTE | 2017-07-22 15:49 | MP ---
cc: KARINA COPE DPM DATE OF SURGERY: 07/21/2017 PREOPERATIVE DIAGNOSIS: Left second digit ulceration infection hammertoe. POSTOPERATIVE DIAGNOSIS Left second digit ulceration infection hammertoe. PROCEDURES PERFORMED Left second digit amputation. FINDINGS Viable tissue at amputation site. PATHOLOGY: Left second digit for pathological analysis and deep wound cultures second MPJ. ESTIMATED BLOOD LOSS Less than 5 mL ANESTHESIA: Monitored anesthesia care with local 10 cc, 0.25% Marcaine plain. DRAINS: None. TOURNIQUET TIME 10 minutes at a setting of 250 mmHg of the patient's left ankle. PLAN OF ACTIVITY: Monitor wound for signs infection, likely DC per podiatry in one to two days. JUSTIFICATION FOR PROCEDURE: This is a pleasant 57-year-old male who has a history of worsening second digit ulceration. The patient is also having coughing and shortness of breath. Upon being evaluated there was no obvious signs of bone infection via MRI, however, the chronic deformity warranted likely amputation to prevent recurrence of issue. The patient consented for the procedure. Vascular agreed that the patient will likely heal. No guarantees were given or implied regarding the outcome. The risks and benefits explained including but not limited to need for more surgery at a later date, delayed healing, nonhealing, need for partial amputation further. PROCEDURE IN DETAIL Under mild sedation the patient is brought to the operating room, placed on the operating room table in supine position. Following the induction of monitored anesthesia care, local anesthesia was obtained about the left forefoot utilizing standard block fashion. The left foot was then scrubbed, prepped and draped in the usual aseptic fashion. The foot was elevated, exsanguinated and the previously placed midcalf tourniquet inflated 250 mmHg. An elliptical fishmouth incision was made, full thickness down to the level of the second MPJ. The joint capsule was identified and sharply dissected and removed. The toe was noted to be viable at the base of the digit with intact second metatarsal head with no signs of osteomyelitis, abscess, viable tissue noted. Probing ligation of neurovascular structures took place. The wound was then flushed with copious amounts of normal saline. Deep closure took place utilizing Vicryl. Skin was closed utilizing nylon. Upon relieving the tourniquet there is a hyperemic response to all digits aside from the second without any issues. A bulky bandage placed. The patient is transferred from OR to PACU with all vital signs stable. The patient is partial weight-bear, physical therapy and outpatient bandaging will be ordered. Will follow along with the culture, wound check in one to two days. Anticipate DC at that time. FRENCH Betancourt/WESLEY /9:19 AM /3:27 PM
[2017-07-22] MEDS: RESP: ALBUTEROL 2.5 MG/IPRATROPIUM 0.5 MG NEB (SCH) NEB (18:58)
--- NOTE | 2017-07-22 20:02 | HHI.PR ---
Subjective Remarks Patient seen bedside this evening. Denies any nausea vomiting fevers or chills. Reports shortness of breath, is using sleep apnea machine. Denies any calf pain. Objective Vital Signs Date Time Temp Pulse Resp B/P (MAP) Pulse Ox O2 Delivery O2 Flow Rate FiO2 07/22/17 18:59 96 2.00 07/22/17 17:02 97.7 68 20 137/63 (87) 96 07/22/17 12:38 97.3 63 20 136/61 (86) 95 07/22/17 11:27 92 07/22/17 08:23 97.5 70 20 167/77 (107) 92 07/22/17 04:00 98.2 71 22 100/54 (69) 93 07/22/17 00:00 98.7 73 22 122/63 (82) 95 07/21/17 20:31 92 Nasal Cannula 2.00 I/O 07/21/17 07/21/17 07/21/17 07/22/17 07/22/17 07/22/17 07:00 15:00 23:00 07:00 15:00 23:00 Intake Total 500 ml 500 ml Output Total 5 ml Balance 500 ml 495 ml Intake Oral 500 ml IV Total 0 ml Other 500 ml Output Urine Total 0 ml Estimated Blood Loss 5 ml # Voids 2 # Bowel Movements 0 5 Result Diagram: 07/22/17 0636 07/22/17 0636 Imaging Last Impressions Lumbar Spine MRI 07/20/17 0000 Signed Impressions: Service Date/Time: Thursday, July 20, 2017 19:50 - CONCLUSION: 1. There are no imaging findings to indicate a discitis or osteomyelitis. Additionally, there is no spinal canal stenosis or neural foraminal narrowing. There is mild to moderate facet arthrosis in the lower lumbar spine. 2. There is a 16mm nonspecific bone lesion in the right aspect of the L5 vertebral body. It is occult on prior CT. One consideration is an atypical hemangioma. However, more concerning lesions cannot be excluded. Consider bone scan for further evaluation of abnormal activity in this area. King Donato MD Foot MRI 07/19/17 0000 Signed Impressions: Service Date/Time: Wednesday, July 19, 2017 14:09 - CONCLUSION: 1. No evidence of osteomyelitis at the 1st digit partial amputation site. 2. Mild diffuse soft tissue swelling about the distal forefoot without focal fluid collections seen. 3. Advanced degenerative changes in the calcaneus adjacent to the cuboid articulation and the anterior talar facet with associated subchondral cysts. Anatoliy Mccormick MD Aorta w/Runoff CTA 07/19/17 0000 Signed Impressions: Service Date/Time: Wednesday, July 19, 2017 19:10 - CONCLUSION: 1. No significant aortic occlusive disease. 2. Mild stenosis of the bilateral common iliac origins secondary calcified plaque. 3. Mild tandem stenoses of the distal SFA bilaterally. 4. Bulky calcified plaque in the distal tibioperoneal trunk bilaterally. Otherwise, three-vessel runoff to the feet. 5. Small 1 cm calcified density adjacent to the pancreatic head and away from the common bile duct. This may reflect material in the duodenum or sequela of prior pancreatitis. Jorge Cerda MD Procedures Status post left second digit amputation Other Results Microbiology Date/Time Source Procedure Growth Status 07/21/17 07:03 Blood Peripheral Aerobic Blood Culture - Preliminary NO GROWTH IN 1 DAY Resulted 07/21/17 07:03 Blood Peripheral Anaerobic Blood Culture - Preliminary NO GROWTH IN 1 DAY Resulted 07/21/17 09:02 Fluid Other Fungal Smear - Final NO FUNGAL ELEMENTS SEEN. Resulted 07/21/17 09:02 Fluid Other Fungal Culture Pending Resulted Objective Remarks Lower extremity physical exam: Vascular: Dorsalis pedis nonpalpable secondary to edema, posterior tibial nonpalpable secondary to edema. Capillary refill time within normal limits to digits 5 bilateral foot. Edema present left lower extremity. Neuro: Gross sensation intact to bilateral lower extremity. Pinpoint sensation decreased. No hyperalgesia noted to bilateral lower extremity Dermatology: Normal temperature and turgor to bilateral lower extremity. Left second interspace incision noted with skin well coapted and sutures intact. Mild sanguinous drainage noted. No purulent drainage upon compression. No erythema noted to periwound or proximal aspect of foot. Musculoskeletal: No tenderness to palpation to left calf, negative Homans sign. Left second digit amputation noted. Medications and IVs Current Medications Medications (Trade) Dose Ordered Sig/Griffin Route Start Time Stop Time Status Last Admin (NS Flush) 2 ml UNSCH PRN IV FLUSH 07/18/17 06:45 (NS Flush) 2 ml BID IV FLUSH 07/18/17 09:00 07/22/17 09:11 (Tylenol) 650 mg Q4H PRN PO 07/18/17 06:45 (Zofran Inj) 4 mg Q6H PRN IVP 07/18/17 06:45 (Narcan Inj) 0.4 mg UNSCH PRN IV PUSH 07/18/17 06:45 (Tracy-Colace) 1 tab BID PO 07/18/17 11:00 07/20/17 08:51 (Milk Of Magnesia Liq) 30 ml Q12H PRN PO 07/18/17 06:45 (Senokot) 17.2 mg Q12H PRN PO 07/18/17 06:45 (Dulcolax Supp) 10 mg DAILY PRN RECTAL 07/18/17 06:45 (Lactulose Liq) 30 ml DAILY PRN PO 07/18/17 06:45 (Aspirin Chew) 81 mg DAILY CHEW 07/18/17 13:00 07/22/17 09:11 (Plavix) 75 mg DAILY PO 07/18/17 13:00 07/22/17 09:10 (Lopressor) 100 mg BID PO 07/18/17 12:15 07/22/17 09:10 (KCl) 10 meq BID PO 07/18/17 21:00 07/22/17 09:09 Patient Own Medication PT OWN MED: TESTOSTERONE ENANTH... Q15D IM 07/18/17 14:00 Future Hold (Prinivil) 40 mg DAILY PO 07/19/17 09:00 07/22/17 09:11 (Lipitor) 80 mg DAILY PO 07/19/17 09:00 07/22/17 09:11 Piperacillin Sod/ Tazobactam Sod 100 ml @ 200 mls/hr Q8H IV 07/18/17 16:00 07/22/17 16:10 (D50w (Vial) Inj) 50 ml UNSCH PRN IV PUSH 07/18/17 14:30 07/21/17 07:27 (Glucagon Inj) 1 mg UNSCH PRN OTHER 07/18/17 14:30 (NovoLOG SUPPLEMENTAL SCALE) 1 ACHS SLIDING SCALE SQ 07/18/17 17:00 07/22/17 11:17 (NovoLOG INJ) 20 units AC BREAKFAST SQ 07/19/17 07:00 07/22/17 09:27 (NovoLOG INJ) 20 units AC DINNER SQ 07/18/17 16:00 07/22/17 16:26 (NovoLOG INJ) 20 units AC LUNCH SQ 07/19/17 11:00 07/22/17 11:17 (Duoneb Neb) 1 ampule Q2HR NEB PRN NEB 07/18/17 14:30 07/20/17 20:39 (Robitussin Dm 200-20 Mg/10 ml Liq) 10 ml Q4H PRN PO 07/18/17 22:30 07/22/17 19:17 (Heparin Inj) 5,000 units Q12HR SQ 07/19/17 21:00 07/20/17 10:30 Pharmacy Profile Note 0 ml @ 0 mls/hr UNSCH OTHER 07/20/17 14:30 Vancomycin HCl 2000 mg/Sodium Chloride 520 ml @ 250 mls/hr Q18H IV 07/21/17 11:00 07/22/17 04:38 Miscellaneous Information SPECIFIC LAB TO BE CORRY... ONCE ONCE .XX 07/23/17 22:45 07/23/17 22:46 Lactated Ringer's 1,000 ml @ 30 mls/hr Q24H PRN IV 07/21/17 05:30 07/24/17 05:29 Sodium Chloride 500 ml @ 30 mls/hr [id number] PRN IV 07/21/17 05:30 07/24/17 05:29 (Betadine 5% Antisepsis Kit) 1 applic SPOUT LINER PRN EACH NARE 07/21/17 05:30 07/24/17 05:29 (Chlorhexidine 2% Cloth) 3 pack SPOUT LINER PRN TOPICAL 07/21/17 05:30 07/24/17 05:29 (Levemir Inj) 51 units HS SQ 07/21/17 21:00 07/21/17 20:21 (Levemir Inj) 51 units DAILYAC SQ 07/22/17 08:00 07/22/17 09:12 (Desitin 40% Oint) 1 applic UNSCH PRN TOPICAL 07/22/17 10:45 07/22/17 16:10 (Lactinex) 1 tab TID PO 07/22/17 13:00 07/22/17 16:11 Assessment and Plan Assessment and Plan 57-year-old male status post left second digit amputation date of surgery 07/21 Patient examined and evaluated with all questions answered Dressing to left lower extremity changed consisting of Adaptic, 4 x 4's, Favio and Aries If patient still in house in 72 hours nursing to perform dressing change Awaiting OR culture and pathology ID to make final outpatient antibiotic recommendations Recommended patient remain limited weightbearing as tolerated in surgical shoe as significant sanguinous drainage noted to the left foot Tamiko Naidu DPM Jul 22, 2017 20:02
[2017-07-23 00:46] VITALS: BP 137/65; PULSE 61; RESP 18; TEMP 97.8; O2SAT 94
[2017-07-23 05:29] VITALS: BP 116/60; PULSE 61; RESP 18; TEMP 97.4; O2SAT 94
[2017-07-23] MEDS: INSULIN ASPART 1,000 UNITS/10 ML VIAL SQ SCH ×3 (06:42→16:36)
[2017-07-23 07:18] LABS: AUTOMATED NEUTROPHIL # 7.1 TH/MM3 (1.8-7.7); BASOPHIL % 0.4 % (0.0-2.0); EOSINOPHIL % 0.5 % (0.0-4.0); HEMATOCRIT 45.2 % (39.0-51.0); HEMOGLOBIN 15.2 GM/DL (13.0-17.0); LYMPH % 11.8 % (9.0-44.0); MEAN CELL VOLUME 91.3 FL (80.0-100.0); MEAN CORPUSCULAR HEMOGLOBIN 30.6 PG (27.0-34.0); MEAN CORPUSCULAR HGB CONC 33.5 % (32.0-36.0); MEAN PLATELET VOLUME 10.1 FL (7.0-11.0); MONO % 7.1 % (0.0-8.0); MONOCYTE # 0.6 TH/MM3 (0-0.9); NEUT % 80.2 % (16.0-70.0); PLATELET COUNT 117 TH/MM3 (150-450); RED BLOOD COUNT 4.95 MIL/MM3 (4.50-5.90); WHITE BLOOD COUNT 8.9 TH/MM3 (4.0-11.0)
[2017-07-23] MEDS: INSULIN DETEMIR 100 UNITS/ML VIAL SQ SCH ×2 (07:27→21:34)
[2017-07-23] MEDS: INSULIN ASPART SUPPLEMENTAL SCALE SQ SCH ×5 (07:27→21:34)
[2017-07-23] MEDS: PIPERACIL-TAZO 4.5 GM PREMIX 100 ML IV SCH ×3 (07:29→23:47)
[2017-07-23] MEDS: POTASSIUM CHLORIDE 10 MEQ CONTROLLED RELEASE TAB PO SCH ×2 (07:30→19:55)
[2017-07-23] MEDS: ATORVASTATIN 40 MG TAB PO SCH (07:30)
[2017-07-23] MEDS: guaiFENesin/DEXTROMETHORPHAN 200 MG/20 MG/10 ML CUP PO PRN ×3 (07:30→21:36)
[2017-07-23] MEDS: LACTOBACILLUS ACIDOPHILUS TAB PO SCH ×3 (07:31→15:53)
[2017-07-23] MEDS: CLOPIDOGREL 75 MG TAB PO SCH (07:31)
[2017-07-23] MEDS: METOPROLOL TARTRATE 100 MG TAB PO SCH ×2 (07:31→19:55)
[2017-07-23] MEDS: DOCUSATE SODIUM 50 MG/SENNA 8.6 MG TAB PO SCH ×2 (07:32→19:55)
[2017-07-23] MEDS: ASPIRIN 81 MG CHEW TAB CHEW SCH (07:33)
[2017-07-23] MEDS: SODIUM CHLORIDE 0.9% FLUSH 10 ML FLUSH IV FLUSH SCH ×2 (07:33→21:34)
[2017-07-23] MEDS: HEPARIN SODIUM - SQ 10,000 UNITS/ML VIAL SQ SCH ×2 (07:34→19:55)
[2017-07-23] MEDS: LISINOPRIL 20 MG TAB PO SCH (07:34)
[2017-07-23 07:35] LABS: BICARBONATE 33.8 MEQ/L (21.0-32.0); CALCIUM 9.3 MG/DL (8.5-10.1); CREATININE 1.08 MG/DL (0.60-1.30)
[2017-07-23 08:31] VITALS: BP 160/74; PULSE 62; RESP 20; TEMP 97.4; O2SAT 95
[2017-07-23 13:09] VITALS: BP 160/75; PULSE 62; RESP 20; TEMP 97.4; O2SAT 98
--- NOTE | 2017-07-23 15:58 | HHI.PR ---
Subjective Remarks The patient endorses diarrhea. He also complains of lower right-sided back pain. He says he has a chronic cough. He says he has not been taking any pain medication. He says he is normally on large dose of insulin. Discussed with nursing. Objective Vitals Vital Signs Date Time Temp Pulse Resp B/P (MAP) Pulse Ox O2 Delivery O2 Flow Rate FiO2 07/23/17 13:09 97.4 62 20 160/75 (103) 98 07/23/17 08:31 97.4 62 20 160/74 (102) 95 07/23/17 07:20 Nasal Cannula 2.00 07/23/17 05:29 97.4 61 18 116/60 (78) 94 07/23/17 00:46 97.8 61 18 137/65 (89) 94 07/22/17 21:18 97.8 78 18 140/68 (92) 95 07/22/17 18:59 96 2.00 07/22/17 17:02 97.7 68 20 137/63 (87) 96 I/O 07/22/17 07/22/17 07/22/17 07/23/17 07/23/17 07/23/17 07:00 15:00 23:00 07:00 15:00 23:00 Intake Total 100 ml Balance 100 ml IV Total 100 ml # Voids 1 # Bowel Movements 5 Result Diagram: 07/23/17 0600 07/23/17 0600 Imaging Last Impressions Lumbar Spine MRI 07/20/17 0000 Signed Impressions: Service Date/Time: Thursday, July 20, 2017 19:50 - CONCLUSION: 1. There are no imaging findings to indicate a discitis or osteomyelitis. Additionally, there is no spinal canal stenosis or neural foraminal narrowing. There is mild to moderate facet arthrosis in the lower lumbar spine. 2. There is a 16mm nonspecific bone lesion in the right aspect of the L5 vertebral body. It is occult on prior CT. One consideration is an atypical hemangioma. However, more concerning lesions cannot be excluded. Consider bone scan for further evaluation of abnormal activity in this area. King Donato MD Foot MRI 07/19/17 0000 Signed Impressions: Service Date/Time: Wednesday, July 19, 2017 14:09 - CONCLUSION: 1. No evidence of osteomyelitis at the 1st digit partial amputation site. 2. Mild diffuse soft tissue swelling about the distal forefoot without focal fluid collections seen. 3. Advanced degenerative changes in the calcaneus adjacent to the cuboid articulation and the anterior talar facet with associated subchondral cysts. Anatoliy Mccormick MD Aorta w/Runoff CTA 07/19/17 0000 Signed Impressions: Service Date/Time: Wednesday, July 19, 2017 19:10 - CONCLUSION: 1. No significant aortic occlusive disease. 2. Mild stenosis of the bilateral common iliac origins secondary calcified plaque. 3. Mild tandem stenoses of the distal SFA bilaterally. 4. Bulky calcified plaque in the distal tibioperoneal trunk bilaterally. Otherwise, three-vessel runoff to the feet. 5. Small 1 cm calcified density adjacent to the pancreatic head and away from the common bile duct. This may reflect material in the duodenum or sequela of prior pancreatitis. Jorge Cerda MD Objective Remarks GENERAL: This is an obese, well-developed patient. CARDIOVASCULAR: Regular rate and rhythm without murmurs. RESPIRATORY: Decreased breath sounds. GASTROINTESTINAL: Abdomen soft, non-tender, distended. No CVA tenderness MUSCULOSKELETAL: Left foot with dry dressing. NEUROLOGICAL: Awake and alert. Motor and sensory grossly within normal limits. Normal speech. Procedures Left second digit amputation Medications and IVs Current Medications Medications (Trade) Dose Ordered Sig/Griffin Route Start Time Stop Time Status Last Admin (NS Flush) 2 ml UNSCH PRN IV FLUSH 07/18/17 06:45 (NS Flush) 2 ml BID IV FLUSH 07/18/17 09:00 07/23/17 07:33 (Tylenol) 650 mg Q4H PRN PO 07/18/17 06:45 (Zofran Inj) 4 mg Q6H PRN IVP 07/18/17 06:45 (Narcan Inj) 0.4 mg UNSCH PRN IV PUSH 07/18/17 06:45 (Tracy-Colace) 1 tab BID PO 07/18/17 11:00 07/20/17 08:51 (Milk Of Magnesia Liq) 30 ml Q12H PRN PO 07/18/17 06:45 (Senokot) 17.2 mg Q12H PRN PO 07/18/17 06:45 (Dulcolax Supp) 10 mg DAILY PRN RECTAL 07/18/17 06:45 (Lactulose Liq) 30 ml DAILY PRN PO 07/18/17 06:45 (Aspirin Chew) 81 mg DAILY CHEW 07/18/17 13:00 07/23/17 07:33 (Plavix) 75 mg DAILY PO 07/18/17 13:00 07/23/17 07:31 (Lopressor) 100 mg BID PO 07/18/17 12:15 07/23/17 07:31 (KCl) 10 meq BID PO 07/18/17 21:00 07/23/17 07:30 Patient Own Medication PT OWN MED: TESTOSTERONE ENANTH... Q15D IM 07/18/17 14:00 Future Hold (Prinivil) 40 mg DAILY PO 07/19/17 09:00 07/23/17 07:34 (Lipitor) 80 mg DAILY PO 07/19/17 09:00 07/23/17 07:30 Piperacillin Sod/ Tazobactam Sod 100 ml @ 200 mls/hr Q8H IV 07/18/17 16:00 07/23/17 15:54 (D50w (Vial) Inj) 50 ml UNSCH PRN IV PUSH 07/18/17 14:30 07/21/17 07:27 (Glucagon Inj) 1 mg UNSCH PRN OTHER 07/18/17 14:30 (NovoLOG SUPPLEMENTAL SCALE) 1 ACHS SLIDING SCALE SQ 07/18/17 17:00 07/23/17 16:02 (Duoneb Neb) 1 ampule Q2HR NEB PRN NEB 07/18/17 14:30 07/20/17 20:39 (Robitussin Dm 200-20 Mg/10 ml Liq) 10 ml Q4H PRN PO 07/18/17 22:30 07/23/17 07:30 (Heparin Inj) 5,000 units Q12HR SQ 07/19/17 21:00 07/20/17 10:30 Pharmacy Profile Note 0 ml @ 0 mls/hr UNSCH OTHER 07/20/17 14:30 Vancomycin HCl 2000 mg/Sodium Chloride 520 ml @ 250 mls/hr Q18H IV 07/21/17 11:00 07/22/17 23:14 Miscellaneous Information SPECIFIC LAB TO BE CORRY... ONCE ONCE .XX 07/23/17 22:45 07/23/17 22:46 Lactated Ringer's 1,000 ml @ 30 mls/hr Q24H PRN IV 07/21/17 05:30 07/24/17 05:29 Sodium Chloride 500 ml @ 30 mls/hr [id number] PRN IV 07/21/17 05:30 07/24/17 05:29 (Betadine 5% Antisepsis Kit) 1 applic OLERICULTURIST PRN EACH NARE 07/21/17 05:30 07/24/17 05:29 (Chlorhexidine 2% Cloth) 3 pack OLERICULTURIST PRN TOPICAL 07/21/17 05:30 07/24/17 05:29 (Desitin 40% Oint) 1 applic UNSCH PRN TOPICAL 07/22/17 10:45 07/22/17 16:10 (Lactinex) 1 tab TID PO 07/22/17 13:00 07/23/17 15:53 (Levemir Inj) 20 units Q12HR SQ 07/23/17 21:00 (NovoLOG INJ) 10 units TIDAC SQ 07/23/17 17:00 A/P Problem List: (1) SOB (shortness of breath) ICD Code: R06.02 - Shortness of breath (2) Edema ICD Code: R60.9 - Edema, unspecified (3) Toe infection ICD Code: L08.9 - Local infection of the skin and subcutaneous tissue, unspecified (4) DM2 (diabetes mellitus, type 2) ICD Code: E11.9 - Type 2 diabetes mellitus without complications (5) CO2 retention ICD Code: E87.2 - Acidosis (6) CKD (chronic kidney disease) stage 3, GFR 30-59 ml/min ICD Code: N18.3 - Chronic kidney disease, stage 3 (moderate) (7) LFT elevation ICD Code: R79.89 - Other specified abnormal findings of blood chemistry (8) Fever ICD Code: R50.9 - Fever, unspecified Assessment and Plan MRSA bacteremia likely from toe ulcer. Echocardiogram without vegetations EF of 50%. He has diabetic toe ulcer MRI does not show osteomyelitis but previous wound culture with MRSA and Acinetobacter status post second digit amputation . was on both IV Zosyn and IV vancomycin but ID recommends just IV vanco. Lumbar spine MRI no evidence of discitis/osteomyelitis but L5 vertebral body lesion and needs elective bone scan. Repeat CBC and BMP in the morning. - bone scan ordered as pt has continued pain in the area. - pain control. DM2 (diabetes mellitus, type 2). Uncontrolled A1c over 10. Glucose level has been low in the mornings. - Diabetic education. - Levemir 20 units BID, aspart 15 TIDAC. CO2 retention. This is chronic with history of ANA possible COPD. Will need PFTs. - Consider pulmonary consult if worsening. Stable. Acute bronchitis. Clinically improving. History of ANA continue home CPAP, nebulizations status post steroids. Tobacco cessation - Tessalon Perles as needed. Diarrhea Possibly s/t antibiotics. - C diff PCR pending. Chronic bilateral lower extremity pitting edema. Elevation. Hold Lasix secondary to acute kidney injury. Acute kidney injury with rhabdomyolysis. Improved, HLIV and avoid nephrotoxins. Mild AST elevation. Likely from infection will follow up Possible peripheral vascular disease. CTA with no significant occlusive disease Chronic medical conditions of coronary artery disease and hypertension. Continue outpatient medications as appropriate. Obtain records from PCP DVT prophylaxis with subcu heparin Discharge Planning Await ID clearance, bone scan Chucky Bailey DO Jul 23, 2017 15:58
--- NOTE | 2017-07-23 16:02 | HHI.IDPN ---
Note Infectious Disease Note Patient notes loose stools. Notes pain at the r. lower back/flank. Denies chills. Using the CPAP machine. No nausea. Blood culture identified as MRSA. left 2nd toe also MRSA and Acinetobacter. 2D ECHO showed no valve vegetation. 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 Patient is a 57 year-old white male who presented to the emergency department at [facility] on July 17. He was said to have acute bronchitis. The patient had a cough at the time. He was admitted to [facility] on July 17, and workup was pursued. He had a low grade fever of 100.8 degrees on the evening of 07/17. He has a wound of the tuft of the second toe which has been cared for by wound care previously. Blood cultures from 07/17 came back with staph coagulase positive in all four bottles. PAST MEDICAL HISTORY Diabetes, diabetic neuropathy, obstructive sleep apnea, coronary artery disease, hypertension, history of coronary bypass graft surgery in 2009, history of myocardial infarction x2, hypertension, bilateral great toe distal resection, coronary artery stents. ALLERGIES NO KNOWN DRUG ALLERGIES. MEDICATIONS 1. Vancomycin 2. Piperacillin / tazobactam. Current Medications Medications (Trade) Dose Ordered Sig/Griffin Route PRN Reason Start Time Stop Time Status Last Admin Dose Admin Sodium Chloride (NS Flush) 2 ml UNSCH PRN IV FLUSH FLUSH AFTER USING IV ACCESS 07/18/17 06:45 Sodium Chloride (NS Flush) 2 ml BID IV FLUSH 07/18/17 09:00 07/23/17 07:33 Acetaminophen (Tylenol) 650 mg Q4H PRN PO TEMP > 100.4 07/18/17 06:45 Ondansetron HCl (Zofran Inj) 4 mg Q6H PRN IVP NAUSEA OR VOMITING 07/18/17 06:45 Naloxone HCl (Narcan Inj) 0.4 mg UNSCH PRN IV PUSH SEE LABEL COMMENTS 07/18/17 06:45 Senna/Docusate Sodium (Tracy-Colace) 1 tab BID PO 07/18/17 11:00 07/20/17 08:51 Magnesium Hydroxide (Milk Of Magnesia Liq) 30 ml Q12H PRN PO Mild constipation 07/18/17 06:45 Sennosides (Senokot) 17.2 mg Q12H PRN PO Moderate constipation 07/18/17 06:45 Bisacodyl (Dulcolax Supp) 10 mg DAILY PRN RECTAL SEVERE CONSITIPATION 07/18/17 06:45 Lactulose (Lactulose Liq) 30 ml DAILY PRN PO SEVERE CONSITIPATION 07/18/17 06:45 Aspirin (Aspirin Chew) 81 mg DAILY CHEW 07/18/17 13:00 07/23/17 07:33 Clopidogrel Bisulfate (Plavix) 75 mg DAILY PO 07/18/17 13:00 07/23/17 07:31 Metoprolol Tartrate (Lopressor) 100 mg BID PO 07/18/17 12:15 07/23/17 07:31 Potassium Chloride (KCl) 10 meq BID PO 07/18/17 21:00 07/23/17 07:30 Patient Own Medication PT OWN MED: TESTOSTERONE ENANTH... Q15D IM 07/18/17 14:00 Future Hold Lisinopril (Prinivil) 40 mg DAILY PO 07/19/17 09:00 07/23/17 07:34 Atorvastatin Calcium (Lipitor) 80 mg DAILY PO 07/19/17 09:00 07/23/17 07:30 Piperacillin Sod/ Tazobactam Sod 100 ml @ 200 mls/hr Q8H IV 07/18/17 16:00 07/23/17 07:29 Dextrose (D50w (Vial) Inj) 50 ml UNSCH PRN IV PUSH HYPOGLYCEMIA-SEE COMMENTS 07/18/17 14:30 07/21/17 07:27 Glucagon (Glucagon Inj) 1 mg UNSCH PRN OTHER HYPOGLYCEMIA-SEE COMMENTS 07/18/17 14:30 Insulin Aspart (NovoLOG SUPPLEMENTAL SCALE) 1 ACHS SLIDING SCALE SQ 07/18/17 17:00 07/22/17 11:17 Insulin Aspart (NovoLOG INJ) 20 units AC BREAKFAST SQ 07/19/17 07:00 07/23/17 06:42 Insulin Aspart (NovoLOG INJ) 20 units AC DINNER SQ 07/18/17 16:00 07/22/17 16:26 Insulin Aspart (NovoLOG INJ) 20 units AC LUNCH SQ 07/19/17 11:00 07/22/17 11:17 Albuterol/ Ipratropium (Duoneb Neb) 1 ampule Q2HR NEB PRN NEB DYSPNEA 07/18/17 14:30 07/20/17 20:39 Guaifenesin/ Dextromethorphan (Robitussin Dm 200-20 Mg/10 ml Liq) 10 ml Q4H PRN PO cough interfering with rest 07/18/17 22:30 07/23/17 07:30 Heparin Sodium (Porcine) (Heparin Inj) 5,000 units Q12HR SQ 07/19/17 21:00 07/20/17 10:30 Pharmacy Profile Note 0 ml @ 0 mls/hr UNSCH OTHER 07/20/17 14:30 Vancomycin HCl 2000 mg/Sodium Chloride 520 ml @ 250 mls/hr Q18H IV 07/21/17 11:00 07/22/17 23:14 Miscellaneous Information SPECIFIC LAB TO BE CORRY... ONCE ONCE .XX 07/23/17 22:45 07/23/17 22:46 Lactated Ringer's 1,000 ml @ 30 mls/hr Q24H PRN IV SEE LABEL COMMENTS 07/21/17 05:30 07/24/17 05:29 Sodium Chloride 500 ml @ 30 mls/hr [id number] PRN IV SEE LABEL COMMENTS 07/21/17 05:30 07/24/17 05:29 Povidone Iodine (Betadine 5% Antisepsis Kit) 1 applic ACCOUNTS PAYABLE COORDINATOR PRN EACH NARE SEE LABEL COMMENTS 07/21/17 05:30 07/24/17 05:29 Chlorhexidine Gluconate (Chlorhexidine 2% Cloth) 3 pack ACCOUNTS PAYABLE COORDINATOR PRN TOPICAL SEE LABEL COMMENTS 07/21/17 05:30 07/24/17 05:29 Insulin Detemir (Levemir Inj) 51 units HS SQ 07/21/17 21:00 07/22/17 21:25 Insulin Detemir (Levemir Inj) 51 units DAILYAC SQ 07/22/17 08:00 07/22/17 09:12 Zinc Oxide (Desitin 40% Oint) 1 applic UNSCH PRN TOPICAL DIAPER RASH 07/22/17 10:45 07/22/17 16:10 Lactobacillus Acidophilus (Lactinex) 1 tab TID PO 07/22/17 13:00 07/23/17 11:10 SOCIAL HISTORY Positive tobacco, half-pack per day. No alcohol. Denies illicit drug use. IMAGING: Lumbar Spine MRI 07/20/17 0000 Signed Impressions: Service Date/Time: Thursday, July 20, 2017 19:50 - CONCLUSION: 1. There are no imaging findings to indicate a discitis or osteomyelitis. Additionally, there is no spinal canal stenosis or neural foraminal narrowing. There is mild to moderate facet arthrosis in the lower lumbar spine. 2. There is a 16mm nonspecific bone lesion in the right aspect of the L5 vertebral body. It is occult on prior CT. One consideration is an atypical hemangioma. However, more concerning lesions cannot be excluded. Consider bone scan for further evaluation of abnormal activity in this area. King Donato MD Foot MRI 07/19/17 0000 Signed Impressions: Service Date/Time: Wednesday, July 19, 2017 14:09 - CONCLUSION: 1. No evidence of osteomyelitis at the 1st digit partial amputation site. 2. Mild diffuse soft tissue swelling about the distal forefoot without focal fluid collections seen. 3. Advanced degenerative changes in the calcaneus adjacent to the cuboid articulation and the anterior talar facet with associated subchondral cysts. Anatoliy Mccormick MD Aorta w/Runoff CTA 07/19/17 0000 Signed Impressions: Service Date/Time: Wednesday, July 19, 2017 19:10 - CONCLUSION: 1. No significant aortic occlusive disease. 2. Mild stenosis of the bilateral common iliac origins secondary calcified plaque. 3. Mild tandem stenoses of the distal SFA bilaterally. 4. Bulky calcified plaque in the distal tibioperoneal trunk bilaterally. Otherwise, three-vessel runoff to the feet. 5. Small 1 cm calcified density adjacent to the pancreatic head and away from the common bile duct. This may reflect material in the duodenum or sequela of prior pancreatitis. Jorge Cerda MD PHYSICAL EXAMINATION GENERAL: Awake and alert. He has a C-PAP machine in place on 2 liters oxygen. HEENT: Extraocular movements grossly intact, pupils reactive to light. No icterus. No conjunctival erythema. Oropharynx: mucosa is moist. Neck: Supple without adenopathy or swelling. Lungs: Clear breath sounds. Heart: Regular S1-S2. No audible murmurs, rubs or gallops. Abdomen: Bowel sounds present, soft, morbidly obese. The patient has very large abdominal girth. Extremities: No clubbing or cyanosis. The left second toe is now post amputation. Skin: No diffuse rash except for erythematous hue at the chest, neck and face. Neuro: No gross focal findings. Psychiatric: Calm and cooperative. IMPRESSION 1. Bacteremia due to MRSA. Toe infection is the source. 2. Back pain, unknown etiology. Appears to be unrelated to the bacteremia. May be chronic. RECOMMENDATIONS 1. Continue vancomycin. 2. Continue Pip/Tazo. 3. Monitor the repeat blood cultures. 4. Monitor temp. 5. Obtain stool c. diff. 6. Monitor clinical status.Anticipate 10 more days of IV Vancomycin for the MRSA bacteremia. If C diff positive will need Flagyl. Plan to stop Pip/Tazobactam in couple of days. Ronan Monte MD Jul 23, 2017 16:02
[2017-07-23] MEDS ORDERED: POTASSIUM CHLORIDE 25 MEQ EFFERVESCENT TAB PO ONE (16:15)
[2017-07-23] MEDS: VANCOMYCIN INJ 2,000 MG in SODIUM CHLORID 0.9% 500 ML INJ 500 ML IV SCH (16:30)
[2017-07-23 16:47] VITALS: BP 151/73; PULSE 66; RESP 22; TEMP 98.1; O2SAT 96
[2017-07-23] MEDS ORDERED: INSULIN ASPART 1,000 UNITS/10 ML VIAL SQ SCH (17:00)
[2017-07-23] MEDS: ACETAMINOPHEN/HYDROcodone 325 MG/10 MG TAB PO PRN ×2 (19:54→23:47)
[2017-07-23 21:00] VITALS: BP 165/75; PULSE 76; RESP 18; TEMP 98.4; O2SAT 95
[2017-07-23] MEDS: MORPHINE SULFATE 2 MG/ML INJ IV PUSH PRN (21:37)
[2017-07-23] MEDS ORDERED: PHARMACY ORDERED LAB ONE (22:45)
[2017-07-23 22:54] LABS: BICARBONATE 33.1 MEQ/L (21.0-32.0); CALCIUM 9.2 MG/DL (8.5-10.1); MAGNESIUM 2.4 MG/DL (1.5-2.5)
[2017-07-24 00:26] VITALS: BP 121/56; PULSE 56; RESP 18; TEMP 98.1; O2SAT 93
[2017-07-24] MEDS: MORPHINE SULFATE 2 MG/ML INJ IV PUSH PRN ×5 (01:33→18:29)
[2017-07-24] MEDS: guaiFENesin/DEXTROMETHORPHAN 200 MG/20 MG/10 ML CUP PO PRN ×5 (01:33→18:39)
[2017-07-24] MEDS: ACETAMINOPHEN/HYDROcodone 325 MG/10 MG TAB PO PRN ×2 (03:58→08:22)
[2017-07-24 05:12] VITALS: BP 130/60; PULSE 57; RESP 18; TEMP 98; O2SAT 93
[2017-07-24 08:07] VITALS: BP 141/65; PULSE 55; RESP 18; TEMP 96.3; O2SAT 94
[2017-07-24] MEDS: SODIUM CHLORIDE 0.9% FLUSH 10 ML FLUSH IV FLUSH SCH ×2 (08:22→21:42)
[2017-07-24] MEDS: PIPERACIL-TAZO 4.5 GM PREMIX 100 ML IV SCH (08:22)
[2017-07-24] MEDS: ASPIRIN 81 MG CHEW TAB CHEW SCH (08:23)
[2017-07-24] MEDS: POTASSIUM CHLORIDE 10 MEQ CONTROLLED RELEASE TAB PO SCH ×2 (08:23→21:42)
[2017-07-24] MEDS: LISINOPRIL 20 MG TAB PO SCH (08:23)
[2017-07-24] MEDS: CLOPIDOGREL 75 MG TAB PO SCH (08:23)
[2017-07-24] MEDS: ATORVASTATIN 40 MG TAB PO SCH (08:23)
[2017-07-24] MEDS: METOPROLOL TARTRATE 100 MG TAB PO SCH ×2 (08:23→21:42)
[2017-07-24] MEDS: LACTOBACILLUS ACIDOPHILUS TAB PO SCH ×3 (08:24→18:29)
[2017-07-24] MEDS: HEPARIN SODIUM - SQ 10,000 UNITS/ML VIAL SQ SCH ×2 (08:26→21:45)
[2017-07-24] MEDS: DOCUSATE SODIUM 50 MG/SENNA 8.6 MG TAB PO SCH ×2 (08:26→21:42)
[2017-07-24 09:25] LABS: HEMATOCRIT 43.9 % (39.0-51.0); HEMOGLOBIN 14.8 GM/DL (13.0-17.0); MEAN CELL VOLUME 90.8 FL (80.0-100.0); MEAN CORPUSCULAR HEMOGLOBIN 30.6 PG (27.0-34.0); MEAN CORPUSCULAR HGB CONC 33.7 % (32.0-36.0); MEAN PLATELET VOLUME 9.7 FL (7.0-11.0); PLATELET COUNT 152 TH/MM3 (150-450); RED BLOOD COUNT 4.83 MIL/MM3 (4.50-5.90); RED CELL DISTRIBUTION WIDTH 16.1 % (11.6-17.2); WHITE BLOOD COUNT 7.5 TH/MM3 (4.0-11.0)
[2017-07-24] MEDS: INSULIN ASPART SUPPLEMENTAL SCALE SQ SCH ×4 (09:51→21:42)
[2017-07-24] MEDS: INSULIN ASPART 1,000 UNITS/10 ML VIAL SQ SCH ×3 (09:51→18:29)
[2017-07-24] MEDS: INSULIN DETEMIR 100 UNITS/ML VIAL SQ SCH ×2 (09:52→21:41)
[2017-07-24] MEDS ORDERED: PHARMACY ORDERED LAB ONE ×2 (10:45)
--- NOTE | 2017-07-24 10:47 | HHI.PR ---
Subjective Remarks The patient completed half of the nuclear medicine study. He wanted to know what was causing his back pain. He wanted the morphine without the by mouth pain medication. He had failure the bedside. Their questions were answered. Discussed with nursing. Objective Vitals Vital Signs Date Time Temp Pulse Resp B/P (MAP) Pulse Ox O2 Delivery O2 Flow Rate FiO2 07/24/17 08:07 96.3 55 18 141/65 (90) 94 07/24/17 05:12 98.0 57 18 130/60 (83) 93 07/24/17 00:26 98.1 56 18 121/56 (77) 93 07/23/17 21:00 98.4 76 18 165/75 (105) 95 07/23/17 16:47 98.1 66 22 151/73 (99) 96 07/23/17 13:09 97.4 62 20 160/75 (103) 98 I/O 07/23/17 07/23/17 07/23/17 07/24/17 07/24/17 07/24/17 07:00 15:00 23:00 07:00 15:00 23:00 Intake Total 100 ml 1200 ml Output Total 300 ml Balance 100 ml 1200 ml -300 ml Intake Oral 1200 ml IV Total 100 ml Output Urine Total 300 ml # Voids 1 3 # Bowel Movements 1 Result Diagram: 07/24/17 0714 07/23/17 2205 Imaging Last Impressions Lumbar Spine MRI 07/20/17 0000 Signed Impressions: Service Date/Time: Thursday, July 20, 2017 19:50 - CONCLUSION: 1. There are no imaging findings to indicate a discitis or osteomyelitis. Additionally, there is no spinal canal stenosis or neural foraminal narrowing. There is mild to moderate facet arthrosis in the lower lumbar spine. 2. There is a 16mm nonspecific bone lesion in the right aspect of the L5 vertebral body. It is occult on prior CT. One consideration is an atypical hemangioma. However, more concerning lesions cannot be excluded. Consider bone scan for further evaluation of abnormal activity in this area. King Donato MD Foot MRI 07/19/17 0000 Signed Impressions: Service Date/Time: Wednesday, July 19, 2017 14:09 - CONCLUSION: 1. No evidence of osteomyelitis at the 1st digit partial amputation site. 2. Mild diffuse soft tissue swelling about the distal forefoot without focal fluid collections seen. 3. Advanced degenerative changes in the calcaneus adjacent to the cuboid articulation and the anterior talar facet with associated subchondral cysts. Anatoliy Mccormick MD Aorta w/Runoff CTA 07/19/17 0000 Signed Impressions: Service Date/Time: Wednesday, July 19, 2017 19:10 - CONCLUSION: 1. No significant aortic occlusive disease. 2. Mild stenosis of the bilateral common iliac origins secondary calcified plaque. 3. Mild tandem stenoses of the distal SFA bilaterally. 4. Bulky calcified plaque in the distal tibioperoneal trunk bilaterally. Otherwise, three-vessel runoff to the feet. 5. Small 1 cm calcified density adjacent to the pancreatic head and away from the common bile duct. This may reflect material in the duodenum or sequela of prior pancreatitis. Jorge Cerda MD Objective Remarks GENERAL: This is an obese, well-developed patient. CARDIOVASCULAR: Regular rate and rhythm without murmurs. RESPIRATORY: Decreased breath sounds. GASTROINTESTINAL: Abdomen soft, non-tender, distended. No CVA tenderness MUSCULOSKELETAL: Left foot with dry dressing. BACK: Tenderness to the right lower back. NEUROLOGICAL: Awake and alert. Motor and sensory grossly within normal limits. Normal speech. PSYCH: Mood and affect appropriate. Procedures Left second digit amputation Medications and IVs Current Medications Medications (Trade) Dose Ordered Sig/Griffin Route Start Time Stop Time Status Last Admin (NS Flush) 2 ml UNSCH PRN IV FLUSH 07/18/17 06:45 (NS Flush) 2 ml BID IV FLUSH 07/18/17 09:00 07/24/17 08:22 (Tylenol) 650 mg Q4H PRN PO 07/18/17 06:45 (Zofran Inj) 4 mg Q6H PRN IVP 07/18/17 06:45 (Narcan Inj) 0.4 mg UNSCH PRN IV PUSH 07/18/17 06:45 (Tracy-Colace) 1 tab BID PO 07/18/17 11:00 07/20/17 08:51 (Milk Of Magnesia Liq) 30 ml Q12H PRN PO 07/18/17 06:45 (Senokot) 17.2 mg Q12H PRN PO 07/18/17 06:45 (Dulcolax Supp) 10 mg DAILY PRN RECTAL 07/18/17 06:45 (Lactulose Liq) 30 ml DAILY PRN PO 07/18/17 06:45 (Aspirin Chew) 81 mg DAILY CHEW 07/18/17 13:00 07/24/17 08:23 (Plavix) 75 mg DAILY PO 07/18/17 13:00 07/24/17 08:23 (Lopressor) 100 mg BID PO 07/18/17 12:15 07/24/17 08:23 (KCl) 10 meq BID PO 07/18/17 21:00 07/24/17 08:23 Patient Own Medication PT OWN MED: TESTOSTERONE ENANTH... Q15D IM 07/18/17 14:00 Future Hold (Prinivil) 40 mg DAILY PO 07/19/17 09:00 07/24/17 08:23 (Lipitor) 80 mg DAILY PO 07/19/17 09:00 07/24/17 08:23 Piperacillin Sod/ Tazobactam Sod 100 ml @ 200 mls/hr Q8H IV 07/18/17 16:00 07/24/17 08:22 (D50w (Vial) Inj) 50 ml UNSCH PRN IV PUSH 07/18/17 14:30 07/21/17 07:27 (Glucagon Inj) 1 mg UNSCH PRN OTHER 07/18/17 14:30 (NovoLOG SUPPLEMENTAL SCALE) 1 ACHS SLIDING SCALE SQ 07/18/17 17:00 07/24/17 09:51 (Duoneb Neb) 1 ampule Q2HR NEB PRN NEB 07/18/17 14:30 07/20/17 20:39 (Robitussin Dm 200-20 Mg/10 ml Liq) 10 ml Q4H PRN PO 07/18/17 22:30 07/24/17 06:25 (Heparin Inj) 5,000 units Q12HR SQ 07/19/17 21:00 07/20/17 10:30 Pharmacy Profile Note 0 ml @ 0 mls/hr UNSCH OTHER 07/20/17 14:30 Vancomycin HCl 2000 mg/Sodium Chloride 520 ml @ 250 mls/hr Q18H IV 07/21/17 11:00 07/23/17 16:30 (Desitin 40% Oint) 1 applic UNSCH PRN TOPICAL 07/22/17 10:45 07/22/17 16:10 (Lactinex) 1 tab TID PO 07/22/17 13:00 07/24/17 08:24 (Levemir Inj) 20 units Q12HR SQ 07/23/17 21:00 07/24/17 09:52 (NovoLOG INJ) 15 units TIDAC SQ 07/23/17 17:00 07/24/17 09:51 (Morphine Inj) 2 mg Q4H PRN IV PUSH 07/23/17 16:30 07/24/17 10:37 Miscellaneous Information SPECIFIC LAB TO BE DRAWN:VANCOMYCIN TROUGH DATE TO... ONCE ONCE .XX 07/24/17 10:45 07/24/17 10:46 07/24/17 10:37 (Roxicodone) 5 mg Q4H PRN PO 07/24/17 10:45 (Roxicodone) 15 mg Q4H PRN PO 07/24/17 10:45 A/P Problem List: (1) SOB (shortness of breath) ICD Code: R06.02 - Shortness of breath (2) Edema ICD Code: R60.9 - Edema, unspecified (3) Toe infection ICD Code: L08.9 - Local infection of the skin and subcutaneous tissue, unspecified (4) DM2 (diabetes mellitus, type 2) ICD Code: E11.9 - Type 2 diabetes mellitus without complications (5) CO2 retention ICD Code: E87.2 - Acidosis (6) CKD (chronic kidney disease) stage 3, GFR 30-59 ml/min ICD Code: N18.3 - Chronic kidney disease, stage 3 (moderate) (7) LFT elevation ICD Code: R79.89 - Other specified abnormal findings of blood chemistry (8) Fever ICD Code: R50.9 - Fever, unspecified Assessment and Plan MRSA bacteremia Likely from toe ulcer. Echocardiogram without vegetations EF of 50%. He has diabetic toe ulcer MRI does not show osteomyelitis but previous wound culture with MRSA and Acinetobacter status post second digit amputation 07/21. Lumbar spine MRI no evidence of discitis/osteomyelitis but L5 vertebral body lesion and needs elective bone scan. - bone scan ordered as pt has continued pain in the area. To be completed 07/24. - pain control. Change PO regimen to oxycodone. Continue IV morphine for breakthrough. DM2 (diabetes mellitus, type 2) Uncontrolled. A1c over 10. - Diabetic education. - Levemir 20 units BID, aspart 15 TIDAC. Adjust as needed. CO2 retention/ Bronchitis This is chronic with history of ANA, possible COPD. - Will need PFTs as outpt. - tobacco cessation. - nebs as needed. Diarrhea Possibly s/t antibiotics. C diff negative. - monitor. Chronic bilateral lower extremity pitting edema Lasix was initially held. - resume Lasix. - Elevation. Acute kidney injury with rhabdomyolysis Resolved. - monitor BMP occasionally while on Lasix. DVT prophylaxis with subcu heparin Discharge Planning Await ID clearance, bone scan Chucky Bailey DO Jul 24, 2017 10:47
[2017-07-24 11:44] VITALS: BP 117/59; PULSE 64; RESP 18; TEMP 97.4; O2SAT 91
--- NOTE | 2017-07-24 12:10 | HHI.IDPN ---
Note Infectious Disease Note Patient still has slightly loose stools. Stool C. difficile toxin negative. Notes pain at the r. lower back/flank. Denies chills. Using the CPAP machine. Bone scan ordered to evaluate L5 lesion seen on MRI. Blood culture identified as MRSA. left 2nd toe also MRSA and Acinetobacter. 2D ECHO showed no valve vegetation. 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 Pathology on the specimen from surgery shows no osteomyelitis at the margins. Patient is a 57 year-old white male who presented to the emergency department at [facility] on July 17. He was said to have acute bronchitis. The patient had a cough at the time. He was admitted to [facility] on July 17, and workup was pursued. He had a low grade fever of 100.8 degrees on the evening of 07/17. He has a wound of the tuft of the second toe which has been cared for by wound care previously. Blood cultures from 07/17 came back with staph coagulase positive in all four bottles. PAST MEDICAL HISTORY Diabetes, diabetic neuropathy, obstructive sleep apnea, coronary artery disease, hypertension, history of coronary bypass graft surgery in 2009, history of myocardial infarction x2, hypertension, bilateral great toe distal resection, coronary artery stents. ALLERGIES NO KNOWN DRUG ALLERGIES. MEDICATIONS 1. Vancomycin 2. Piperacillin / tazobactam. Current Medications Medications (Trade) Dose Ordered Sig/Griffin Route PRN Reason Start Time Stop Time Status Last Admin Dose Admin Sodium Chloride (NS Flush) 2 ml UNSCH PRN IV FLUSH FLUSH AFTER USING IV ACCESS 07/18/17 06:45 Sodium Chloride (NS Flush) 2 ml BID IV FLUSH 07/18/17 09:00 07/24/17 08:22 Acetaminophen (Tylenol) 650 mg Q4H PRN PO TEMP > 100.4 07/18/17 06:45 Ondansetron HCl (Zofran Inj) 4 mg Q6H PRN IVP NAUSEA OR VOMITING 07/18/17 06:45 Naloxone HCl (Narcan Inj) 0.4 mg UNSCH PRN IV PUSH SEE LABEL COMMENTS 07/18/17 06:45 Senna/Docusate Sodium (Tracy-Colace) 1 tab BID PO 07/18/17 11:00 07/20/17 08:51 Magnesium Hydroxide (Milk Of Magnesia Liq) 30 ml Q12H PRN PO Mild constipation 07/18/17 06:45 Sennosides (Senokot) 17.2 mg Q12H PRN PO Moderate constipation 07/18/17 06:45 Bisacodyl (Dulcolax Supp) 10 mg DAILY PRN RECTAL SEVERE CONSITIPATION 07/18/17 06:45 Lactulose (Lactulose Liq) 30 ml DAILY PRN PO SEVERE CONSITIPATION 07/18/17 06:45 Aspirin (Aspirin Chew) 81 mg DAILY CHEW 07/18/17 13:00 07/24/17 08:23 Clopidogrel Bisulfate (Plavix) 75 mg DAILY PO 07/18/17 13:00 07/24/17 08:23 Metoprolol Tartrate (Lopressor) 100 mg BID PO 07/18/17 12:15 07/24/17 08:23 Potassium Chloride (KCl) 10 meq BID PO 07/18/17 21:00 07/24/17 08:23 Patient Own Medication PT OWN MED: TESTOSTERONE ENANTH... Q15D IM 07/18/17 14:00 Future Hold Lisinopril (Prinivil) 40 mg DAILY PO 07/19/17 09:00 07/24/17 08:23 Atorvastatin Calcium (Lipitor) 80 mg DAILY PO 07/19/17 09:00 07/24/17 08:23 Piperacillin Sod/ Tazobactam Sod 100 ml @ 200 mls/hr Q8H IV 07/18/17 16:00 07/24/17 08:22 Dextrose (D50w (Vial) Inj) 50 ml UNSCH PRN IV PUSH HYPOGLYCEMIA-SEE COMMENTS 07/18/17 14:30 07/21/17 07:27 Glucagon (Glucagon Inj) 1 mg UNSCH PRN OTHER HYPOGLYCEMIA-SEE COMMENTS 07/18/17 14:30 Insulin Aspart (NovoLOG SUPPLEMENTAL SCALE) 1 ACHS SLIDING SCALE SQ 07/18/17 17:00 07/24/17 09:51 Albuterol/ Ipratropium (Duoneb Neb) 1 ampule Q2HR NEB PRN NEB DYSPNEA 07/18/17 14:30 07/20/17 20:39 Guaifenesin/ Dextromethorphan (Robitussin Dm 200-20 Mg/10 ml Liq) 10 ml Q4H PRN PO cough interfering with rest 07/18/17 22:30 07/24/17 10:42 Heparin Sodium (Porcine) (Heparin Inj) 5,000 units Q12HR SQ 07/19/17 21:00 07/20/17 10:30 Pharmacy Profile Note 0 ml @ 0 mls/hr UNSCH OTHER 07/20/17 14:30 Vancomycin HCl 2000 mg/Sodium Chloride 520 ml @ 250 mls/hr Q18H IV 07/21/17 11:00 07/23/17 16:30 Zinc Oxide (Desitin 40% Oint) 1 applic UNSCH PRN TOPICAL DIAPER RASH 07/22/17 10:45 07/22/17 16:10 Lactobacillus Acidophilus (Lactinex) 1 tab TID PO 07/22/17 13:00 07/24/17 08:24 Insulin Detemir (Levemir Inj) 20 units Q12HR SQ 07/23/17 21:00 07/24/17 09:52 Insulin Aspart (NovoLOG INJ) 15 units TIDAC SQ 07/23/17 17:00 07/24/17 09:51 Morphine Sulfate (Morphine Inj) 2 mg Q4H PRN IV PUSH Breakthrough pain 07/23/17 16:30 07/24/17 10:37 Oxycodone HCl (Roxicodone) 5 mg Q4H PRN PO pain 3-5 07/24/17 10:45 Oxycodone HCl (Roxicodone) 15 mg Q4H PRN PO pain 6-10 07/24/17 10:45 Furosemide (Lasix) 40 mg BID@09,18 PO 07/24/17 10:45 SOCIAL HISTORY Positive tobacco, half-pack per day. No alcohol. Denies illicit drug use. IMAGING: Lumbar Spine MRI 07/20/17 0000 Signed Impressions: Service Date/Time: Thursday, July 20, 2017 19:50 - CONCLUSION: 1. There are no imaging findings to indicate a discitis or osteomyelitis. Additionally, there is no spinal canal stenosis or neural foraminal narrowing. There is mild to moderate facet arthrosis in the lower lumbar spine. 2. There is a 16mm nonspecific bone lesion in the right aspect of the L5 vertebral body. It is occult on prior CT. One consideration is an atypical hemangioma. However, more concerning lesions cannot be excluded. Consider bone scan for further evaluation of abnormal activity in this area. King Donato MD Foot MRI 07/19/17 0000 Signed Impressions: Service Date/Time: Wednesday, July 19, 2017 14:09 - CONCLUSION: 1. No evidence of osteomyelitis at the 1st digit partial amputation site. 2. Mild diffuse soft tissue swelling about the distal forefoot without focal fluid collections seen. 3. Advanced degenerative changes in the calcaneus adjacent to the cuboid articulation and the anterior talar facet with associated subchondral cysts. Anatoliy Mccormick MD Aorta w/Runoff CTA 07/19/17 0000 Signed Impressions: Service Date/Time: Wednesday, July 19, 2017 19:10 - CONCLUSION: 1. No significant aortic occlusive disease. 2. Mild stenosis of the bilateral common iliac origins secondary calcified plaque. 3. Mild tandem stenoses of the distal SFA bilaterally. 4. Bulky calcified plaque in the distal tibioperoneal trunk bilaterally. Otherwise, three-vessel runoff to the feet. 5. Small 1 cm calcified density adjacent to the pancreatic head and away from the common bile duct. This may reflect material in the duodenum or sequela of prior pancreatitis. Jorge Cerda MD PHYSICAL EXAMINATION GENERAL: Awake and alert. Using C-PAP machine in place on 2 liters oxygen. HEENT: Extraocular movements grossly intact, pupils reactive to light. No icterus. No conjunctival erythema. Oropharynx: mucosa is moist. Neck: Supple without adenopathy or swelling. Lungs: Clear breath sounds. Heart: Regular S1-S2. No audible murmurs, rubs or gallops. Abdomen: Bowel sounds present, soft, morbidly obese. Extremities: No clubbing or cyanosis. The left second toe is now post amputation. Skin: No diffuse rash except for erythematous hue at the chest, neck and face. Neuro: No gross focal findings. Psychiatric: Calm and cooperative. IMPRESSION 1. Bacteremia due to MRSA. Toe infection is the source. 2. Back pain, unknown etiology. Appears to be unrelated to the bacteremia. May be chronic. RECOMMENDATIONS 1. Continue vancomycin. 2. Stop Pip/Tazo. 3. Follow the bone scan. 4. Monitor clinical status. Plan on treatment with IV Vancomycin until July 31, 2017 for the MRSA bacteremia. If the bone scan is positive he may need further workup. Otherwise arrangements can be made for outpatient IV vancomycin. PICC line will be ordered for vancomycin therapy. Ronan Monte MD Jul 24, 2017 12:10
--- NOTE | 2017-07-24 12:21 | HHI.FF ---
Infusion Therapy Location of Infusion Therapy: Home Health Care IV Infusion Order Patient Information Patient Weight 157.1 kg Diagnosis: (1) Toe infection Diagnosis Bacteremia Coded Allergies: No Known Allergies (Unverified , 07/17/17) Administer Medication Vancomycin q 24 hours 2200mg IV Stop Treatment: Jul 31, 2017 Additional Information Venous access: PICC Line Additional Instructions [x] Peripheral flush and dressing changes per protocol [x] Implanted port and central line therapist: * Implanted port: 10 ml Normal Saline followed by 5 ml Heparin 100 units/ml Heparin flush after each use and monthly to maintain. [] May leave port accessed during therapy. [] May leave peripheral site accessed for duration of therapy. [x] If patient has SOB or respiratory distress, check oxygen saturation. If less than 90% or clinical signs of respiratory distress, administer oxygen at 2 L/min. via nasal cannula and notify physician. [x] Anaphylaxis/Reaction orders: * Stop infusion. * Keep IV line open with saline flush. * Notify physician. * Monitor vital signs every 15 minutes until symptoms resolve. * Check Oxygen saturation; Oxygen at 2 L/min. via nasal cannula if less than 90% or clinical signs of respiratory distress. * Administer diphenhydramine (Benadryl) 25 mg IV STAT, (unless patient has received as pre-med). May repeat once, if necessary. * Solu-Cortef 250 mg IVP over 30-60 seconds, use 100 mg vials for each dissolution. * Epinephrine (1mg/1 ml) 0.3 mg subcutaneously or IVP now with any signs of respiratory distress. * Check with physician for new additional pre-med orders if patient is re- challenged or re-treated. [x] May remove PICC line when treatment complete, after confirming with Physician. [x] If the patient is admitted to the hospital, the ED, or transferred via [facility] , complete transfer form including medication reconciliation order sheet. Laboratory Tests Additional Information Vancomycin trough and BMP Q3 days while on Vancomycin. Call with Vancomycin level > 16 or Creatinine > 1.4. Dr Monte [phone]. Hold Vancomycin if creatinine > 1.6. Fax Lab results to [phone]. Ronan Monte MD Jul 24, 2017 12:21
[2017-07-24] MEDS: VANCOMYCIN INJ 2,000 MG in SODIUM CHLORID 0.9% 500 ML INJ 500 ML IV SCH (12:23)
[2017-07-24] MEDS: FUROSEMIDE 40 MG TAB PO SCH ×2 (12:30→18:29)
--- NOTE | 2017-07-24 14:21 | RADRPT ---
EXAM DATE/TIME: 07/24/2017 09:20 [facility] COMPARISON: CTA RUNOFF W 3D RECON, July 19, 2017, 19:10. MRI LUMBAR SPINE W & W/O CONTRAST, July 20 8, 19:50. PRIOR BONE SCANS: No correlative bone scan available for comparison. INDICATIONS : Bone lesion in lumbar spine. DOSE: 32.7 mCi Tc99m MDP IV MEDICAL HISTORY : Diabetes mellitus type 2. Hypertension. Chronic obstructive pulmonary disease. Smoker. SURGICAL HISTORY : CABG Coronary artery stent. Cholecystectomy. ENCOUNTER: Initial ACUITY: 3 days PAIN SCALE: 5/10 LOCATION: Back. TECHNIQUE: Three hours post intravenous administration of radiotracer, whole body bone scan imaging was performe d. FINDINGS: Increased blood pool and delayed scan activity overlying the midline face and maxillary region there are ramez combination of dental disease and sinus disease. Correlation is recommended. Increased uptake in the shoulders bilaterally in symmetric fashion may be degenerative. Prominently increased uptake in the right knee, particularly medial compartment is likely arthritic. Similarly, uptake in the ankles and hindfeet is likely arthritic. There is no significant abnormal uptake identified in the lumbar spine to specifically suggest aggres sive process. CONCLUSION: Bone scan is negative in the lumbar spine. King Mancia MD on July 24, 2017 at 14:14 Board Certified Radiologist. This report was verified electronically.
[2017-07-24 16:35] VITALS: BP 144/65; PULSE 63; RESP 18; TEMP 97.8; O2SAT 96
--- NOTE | 2017-07-24 16:42 | RADRPT ---
EXAM DATE/TIME: 07/24/2017 16:06 [facility] COMPARISON: CHEST SINGLE AP, July 17, 2017, 0:00. INDICATIONS : Post PICC line placement. MEDICAL HISTORY : Hypertension. Chronic obstructive pulmonary disease. Diabetes mellitus type SURGICAL HISTORY : CABG. ENCOUNTER: Initial ACUITY: 1 day PAIN SCORE: 0/10 LOCATION: Right chest FINDINGS: Portable AP view of the chest demonstrates mildly enlarged cardiac silhouette in this patient post me miki sternotomy. Right upper extremity PICC distal tip is in the superior vena cava. Lungs are underi nflated. No effusion, consolidation, or pneumothorax is present. The bones demonstrate no acute findi ng. CONCLUSION: 1. Right upper extremity PICC distal tip in the superior vena cava. 2. Otherwise, stable examination with mildly enlarged cardiac silhouette. King Donato MD on July 24, 2017 at 16:40 Board Certified Radiologist. This report was verified electronically.
[2017-07-24] MEDS ORDERED: SODIUM CHLORIDE 0.9% FLUSH 10 ML FLUSH IV FLUSH PRN (17:00)
[2017-07-24 17:52] VITALS: O2SAT 96
[2017-07-25] VITALS: BP 177/81; PULSE 68; RESP 20; TEMP 97.5; O2SAT 94
[2017-07-25 04:00] VITALS: BP 167/72; PULSE 58; RESP 20; TEMP 97.3; O2SAT 93
[2017-07-25] MEDS: VANCOMYCIN INJ 2,000 MG in SODIUM CHLORID 0.9% 500 ML INJ 500 ML IV SCH (04:56)
[2017-07-25] MEDS: guaiFENesin/DEXTROMETHORPHAN 200 MG/20 MG/10 ML CUP PO PRN ×3 (05:01→16:28)
[2017-07-25 05:34] LABS: CREATININE 0.79 MG/DL (0.60-1.30)
[2017-07-25] MEDS: INSULIN ASPART SUPPLEMENTAL SCALE SQ SCH ×2 (08:00→12:00)
[2017-07-25 08:28] VITALS: BP 157/74; PULSE 63; RESP 18; TEMP 97.2; O2SAT 96
[2017-07-25] MEDS: LISINOPRIL 20 MG TAB PO SCH (09:00)
[2017-07-25] MEDS: DOCUSATE SODIUM 50 MG/SENNA 8.6 MG TAB PO SCH (09:00)
[2017-07-25] MEDS: HEPARIN SODIUM - SQ 10,000 UNITS/ML VIAL SQ SCH (09:00)
[2017-07-25] MEDS ORDERED: SODIUM CHLORIDE 0.9% FLUSH 10 ML FLUSH IV FLUSH SCH (09:00)
[2017-07-25] MEDS: INSULIN DETEMIR 100 UNITS/ML VIAL SQ SCH (10:15)
[2017-07-25] MEDS: INSULIN ASPART 1,000 UNITS/10 ML VIAL SQ SCH ×2 (10:16→12:00)
[2017-07-25] MEDS: MORPHINE SULFATE 2 MG/ML INJ IV PUSH PRN (10:20)
[2017-07-25] MEDS: ATORVASTATIN 40 MG TAB PO SCH (10:23)
[2017-07-25] MEDS: FUROSEMIDE 40 MG TAB PO SCH (10:24)
[2017-07-25] MEDS: LACTOBACILLUS ACIDOPHILUS TAB PO SCH ×2 (10:25→12:57)
[2017-07-25] MEDS: CLOPIDOGREL 75 MG TAB PO SCH (10:26)
[2017-07-25] MEDS: METOPROLOL TARTRATE 100 MG TAB PO SCH (10:27)
[2017-07-25] MEDS: SODIUM CHLORIDE 0.9% FLUSH 10 ML FLUSH IV FLUSH SCH (10:28)
[2017-07-25] MEDS: ASPIRIN 81 MG CHEW TAB CHEW SCH (10:29)
[2017-07-25] MEDS: POTASSIUM CHLORIDE 10 MEQ CONTROLLED RELEASE TAB PO SCH (10:39)
[2017-07-25] MEDS ORDERED: VANC1000P IV (12:15)
[2017-07-25] MEDS ORDERED: DILA2TAB4 PO (12:15)
[2017-07-25] MEDS ORDERED: DEXT10SY2 PO (12:15)
--- NOTE | 2017-07-25 12:15 | HHI.DCPOC ---
Discharge Care Plan Diagnosis: (1) Toe infection (2) DM2 (diabetes mellitus, type 2) (3) CKD (chronic kidney disease) stage 3, GFR 30-59 ml/min (4) Edema Goals to Promote Your Health * To prevent worsening of your condition and complications * To maintain your health at the optimal level Directions to Meet Your Goals Take your medications as prescribed Follow your dietary instruction Follow activity as directed Keep your appointments as scheduled Take your immunizations and boosters as scheduled If your symptoms worsen call your PCP, if no PCP go to Urgent Care Center or Emergency Room Smoking is Dangerous to Your Health. Avoid second hand smoke Call the 24-hour hour crisis hotline for domestic abuse at Chucky Bailey DO Jul 25, 2017 12:15
--- NOTE | 2017-07-25 12:17 | HHI.FF ---
Face to Face Verification Diagnosis: (1) Toe infection (2) DM2 (diabetes mellitus, type 2) (3) CKD (chronic kidney disease) stage 3, GFR 30-59 ml/min (4) Edema Home Health Nursing Order: Medical education Signs/symptoms of disease process Diabetic education Medication education-adverse effect Wound care and dressing changes Nursing assessment with vital signs I have seen patient Avelino Sanchez on 07/25/17. My clinical findings support the need for the requested home health care services because: Ltd mobility - disease progression Deconditioned w/ increased weakness Limited ability to care for self High risk of falls Infection w/ risk of complications I certify that my clinical findings support that this patient is homebound because: Post-op weakness Unsteady gait/balance Unsafe to leave home unassisted Chucky Bailey DO Jul 25, 2017 12:17
[2017-07-25 12:23] VITALS: BP 118/56; PULSE 68; RESP 18; TEMP 98.2; O2SAT 94
--- NOTE | 2017-07-25 12:25 | HHI.DS ---
Discharge Summary Admission Date Jul 18, 2017 at 14:48 Discharge Date: Jul 25, 2017 Admitting Diagnosis (1) SOB (shortness of breath) ICD Code: R06.02 - Shortness of breath (2) Edema ICD Code: R60.9 - Edema, unspecified (3) Toe infection ICD Code: L08.9 - Local infection of the skin and subcutaneous tissue, unspecified Diagnosis: Principal (4) DM2 (diabetes mellitus, type 2) ICD Code: E11.9 - Type 2 diabetes mellitus without complications Diagnosis: Principal (5) CO2 retention ICD Code: E87.2 - Acidosis (6) CKD (chronic kidney disease) stage 3, GFR 30-59 ml/min ICD Code: N18.3 - Chronic kidney disease, stage 3 (moderate) (7) LFT elevation ICD Code: R79.89 - Other specified abnormal findings of blood chemistry (8) Fever ICD Code: R50.9 - Fever, unspecified Procedures Left second digit amputation Brief History - From Admission This patient is a 57-year-old gentleman with a history of diabetes and obstructive sleep apnea who comes to the hospital complaining of shortness of breath and subjective fevers for about 2 days. He does not have any chest pain but notes that he has a cough which is nonproductive and increased dyspnea on exertion associated with lower extremity swelling left greater than right. Patient says that he has had a chronic left toe ulcer be involved with the wound management team at [facility] wound [facility] [place] (he goes every Saturday ) he notes that it is the lower extremity has become more erythematous and with some increased swelling. He is also quite short of breath. He has some increased work of breathing and dyspnea on exertion. In the emergency room patient did have onset of fever and chills. His temperature was 101.7. Patient was recommended for admission to the hospital CBC/BMP: 07/24/17 0714 07/25/17 0500 Significant Findings Laboratory Tests Test 07/23/17 06:00 07/23/17 17:42 07/23/17 22:05 07/24/17 07:14 Platelet Count 117 TH/MM3 (150-450) Neutrophils (%) (Auto) 80.2 % (16.0-70.0) Blood Urea Nitrogen 20 MG/DL (7-18) Random Glucose 51 MG/DL (74-106) 247 MG/DL (74-106) Potassium Level 3.4 MEQ/L (3.5-5.1) Carbon Dioxide Level 33.8 MEQ/L (21.0-32.0) 33.1 MEQ/L (21.0-32.0) Anion Gap 4 MEQ/L (5-15) 4 MEQ/L (5-15) Estimat Glomerular Filtration Rate 70 ML/MIN (>89) 76 ML/MIN (>89) Vancomycin Level Trough 26.0 MCG/ML (5.0-10.0) Test 07/24/17 11:20 07/25/17 05:00 Vancomycin Level Trough 14.8 MCG/ML (5.0-10.0) Imaging Last Impressions Chest X-Ray 07/24/17 0000 Signed Impressions: Service Date/Time: Monday, July 24, 2017 16:06 - CONCLUSION: 1. Right upper extremity PICC distal tip in the superior vena cava. 2. Otherwise, stable examination with mildly enlarged cardiac silhouette. King Donato MD Bone Scan Nuclear Medicine 07/24/17 0000 Signed Impressions: Service Date/Time: Monday, July 24, 2017 09:20 - CONCLUSION: Bone scan is negative in the lumbar spine. King Mancia MD Lumbar Spine MRI 07/20/17 0000 Signed Impressions: Service Date/Time: Thursday, July 20, 2017 19:50 - CONCLUSION: 1. There are no imaging findings to indicate a discitis or osteomyelitis. Additionally, there is no spinal canal stenosis or neural foraminal narrowing. There is mild to moderate facet arthrosis in the lower lumbar spine. 2. There is a 16mm nonspecific bone lesion in the right aspect of the L5 vertebral body. It is occult on prior CT. One consideration is an atypical hemangioma. However, more concerning lesions cannot be excluded. Consider bone scan for further evaluation of abnormal activity in this area. King Donato MD Foot MRI 07/19/17 0000 Signed Impressions: Service Date/Time: Wednesday, July 19, 2017 14:09 - CONCLUSION: 1. No evidence of osteomyelitis at the 1st digit partial amputation site. 2. Mild diffuse soft tissue swelling about the distal forefoot without focal fluid collections seen. 3. Advanced degenerative changes in the calcaneus adjacent to the cuboid articulation and the anterior talar facet with associated subchondral cysts. Anatoliy Mccormick MD Aorta w/Runoff CTA 07/19/17 0000 Signed Impressions: Service Date/Time: Wednesday, July 19, 2017 19:10 - CONCLUSION: 1. No significant aortic occlusive disease. 2. Mild stenosis of the bilateral common iliac origins secondary calcified plaque. 3. Mild tandem stenoses of the distal SFA bilaterally. 4. Bulky calcified plaque in the distal tibioperoneal trunk bilaterally. Otherwise, three-vessel runoff to the feet. 5. Small 1 cm calcified density adjacent to the pancreatic head and away from the common bile duct. This may reflect material in the duodenum or sequela of prior pancreatitis. Jorge Cerda MD PE at Discharge GENERAL: This is an obese, well-developed patient. CARDIOVASCULAR: Regular rate and rhythm without murmurs. RESPIRATORY: Decreased breath sounds. GASTROINTESTINAL: Abdomen soft, non-tender, distended. No CVA tenderness MUSCULOSKELETAL: Left foot with dry dressing. BACK: Tenderness to the right lower back. NEUROLOGICAL: Awake and alert. Motor and sensory grossly within normal limits. Normal speech. PSYCH: Mood and affect appropriate. Pt update on day of discharge The patient was feeling well. He requested pain medications to go home with. He had questions about dressing changes. Discussed with nursing. Hospital Course MRSA bacteremia/ Toe ulcer/ Back pain Echocardiogram without vegetations EF of 50%. He has a diabetic toe ulcer. MRI did not show osteomyelitis but previous wound culture with MRSA and Acinetobacter. 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 The pt was continued on IV Zosyn and vancomycin. Zosyn was later discontinued. Lumbar spine MRI with no evidence of discitis/osteomyelitis, but L5 vertebral body lesion was noted. Bone scan was negative. The pt received pain control as needed. ID recommended to continue IV vancomycin to complete a course on 07/31. He will follow up with podiatry as an outpt. He has limited weightbearing. DM2 (diabetes mellitus, type 2) Uncontrolled. A1c over 10%. He received diabetic education. He will resume his home regimen upon discharge. CO2 retention/ Bronchitis This is chronic with history of ANA, possible COPD. He received oxygen and nebs as needed. We encouraged ambulation. He will need PFTs as an outpt. He received tobacco cessation instruction. Diarrhea Possibly s/t antibiotics. C diff negative. Seems to be resolved. Chronic bilateral lower extremity pitting edema Lasix was initially held s/t renal insufficiency. We resumed Lasix. We recommended leg elevation. Acute kidney injury with rhabdomyolysis Resolved. He will follow up with his PCP. He will have a BMP repeated in 3-5 days. Pt Condition on Discharge: Stable Discharge Disposition: Disch w/ Home Health Serv Discharge Time: > 30 minutes Discharge Instructions DIET: Follow Instructions for: Diabetic Diet Activities you can perform: See Additionl Instruction Follow up Referrals: PCP Follow-up - 1 Week Podiatry - 1 Week @ [facility] with Barron Huerta DPM New Orders: BASIC METABOLIC PROF - 3-5 Days New Medications: Bariatric Rollator/Extra (Bariatric Rollator/Extra) 1 Mis Mis EA .XX DIRECTED, #1 Hydromorphone (Dilaudid) 2 Mg Tab 2 MG PO Q6H PRN for Pain Management, #14 TAB 0 Refills Vancomycin Inj (Vancomycin Inj) 1 Gram Inj 1 MG IV DAILY for Infection, #1 BAG 0 Refills Dextromethorphan-Guaifenesin (Dextromethorphan/Guaifene 10-100 mg/5Ml) 100 Mg- 10 Mg/5 Ml Syp 10 ML PO Q4H PRN for cough interfering with rest, #1 BOTTLE Continued Medications: Aspirin (Aspirin) 81 Mg Chew 81 MG CHEW DAILY, TAB 0 Refills Clopidogrel (Clopidogrel) 75 Mg Tab 75 MG PO DAILY for Blood Clot Prevention, #30 TAB 0 Refills Furosemide (Furosemide) 40 Mg Tab 40 MG PO BID, #60 TAB 0 Refills Insulin Aspart Inj (Novolog Inj) 1,000 Unit/10 Ml Vial 20 UNITS SQ AC BREAKFAST for Blood Sugar Management, #10 ML 0 Refills Insulin Aspart Inj (Novolog Inj) 1,000 Unit/10 Ml Vial 20 UNITS SQ AC LUNCH for Blood Sugar Management, #10 ML 0 Refills Insulin Aspart Inj (Novolog Inj) 1,000 Unit/10 Ml Vial 20 UNITS SQ AC DINNER for Blood Sugar Management, #10 ML 0 Refills Insulin Glargine Inj (Lantus Inj) 1,000 Unit/10 Ml Vial 51 UNITS SQ HS for Blood Sugar Management, VIAL 0 Refills Lisinopril (Lisinopril) 40 Mg Tab 40 MG PO DAILY for Blood Pressure Management, #30 TAB 0 Refills Metformin (Metformin) 1,000 Mg Tab 1000 MG PO BIDPC for Blood Sugar Management, #60 TAB 0 Refills Methylprednisolone (Methylprednisolone) 8 Mg Tab 2.5 MG PO DAILY, TAB 0 Refills Metoprolol Tartrate (Metoprolol Tartrate) 100 Mg Tab 100 MG PO BID, #60 TAB 0 Refills Potassium Chloride ER (Klor-Con 10) 10 Meq Tab 10 MEQ PO BID for Electrolyte Replacement, #60 TAB 0 Refills Rosuvastatin (Crestor) 40 Mg Tab 40 MG PO DAILY for Cholesterol Management, #30 TAB 0 Refills Testosterone Enanthate Inj (Testosterone Enanthate Inj) 200 Mg/Ml Inj 100 MG IM Q15D for Hormone Replacement, #1 VIAL 0 Refills Chucky Baliey DO Jul 25, 2017 12:25
[2017-07-25] MEDS ORDERED: BARIATRIC ROLLA1 MIS (12:41)
== END 2017-07-25 17:23 | disposition home health service (06) | DRG 617 ==
LOC: PHEDDLT 09:35 → PH3A 09:55 → OBSVTOIN 14:48 → N05A 20:52
PROVIDERS: ADMIT Hospitalist; ATTEND Hospitalist
PROC: 0Y6S0Z1 Detachment at Left 2nd Toe, High, Open Approach (ICD-10-PCS; principal; 2017-07-21 08:28)
DX: E11.621 Type 2 diabetes mellitus with foot ulcer (principal); E87.2 Acidosis; M62.82 Rhabdomyolysis; N17.9 Acute kidney failure, unspecified; R78.81 Bacteremia; I13.0 Hypertensive heart and chronic kidney disease with heart failure and stage 1 through stage 4 chronic kidney disease, or unspecified chronic kidney disease; N18.3 Chronic kidney disease, stage 3 (moderate); Z68.42 Body mass index [BMI] 45.0-49.9, adult; I50.9 Heart failure, unspecified; E11.22 Type 2 diabetes mellitus with diabetic chronic kidney disease; L97.529 Non-pressure chronic ulcer of other part of left foot with unspecified severity; E11.65 Type 2 diabetes mellitus with hyperglycemia; J20.9 Acute bronchitis, unspecified; F17.210 Nicotine dependence, cigarettes, uncomplicated; R60.0 Localized edema; M20.42 Other hammer toe(s) (acquired), left foot; E11.40 Type 2 diabetes mellitus with diabetic neuropathy, unspecified; I25.10 Atherosclerotic heart disease of native coronary artery without angina pectoris; I25.2 Old myocardial infarction; G47.33 Obstructive sleep apnea (adult) (pediatric); E66.01 Morbid (severe) obesity due to excess calories; M54.5 Low back pain; B95.62 Methicillin resistant Staphylococcus aureus infection as the cause of diseases classified elsewhere; E11.649 Type 2 diabetes mellitus with hypoglycemia without coma; R19.7 Diarrhea, unspecified; E11.69 Type 2 diabetes mellitus with other specified complication; L08.9 Local infection of the skin and subcutaneous tissue, unspecified; E11.51 Type 2 diabetes mellitus with diabetic peripheral angiopathy without gangrene; Z79.4 Long term (current) use of insulin; Z95.1 Presence of aortocoronary bypass graft; Z95.5 Presence of coronary angioplasty implant and graft
CPT/HCPCS: 36600; 71045; 72158; 73720; 75635; 76937; 78306; 80048; 80061; 80202; 81001; 82550; 82552; 82565; 82805; 82948; 83036; 83735; 85025; 85027; 85652; 87015; 87040; 87070; 87102; 87116; 87205; 87206; 87493; 88305; 88311; 93005; 93306; 94640; A9503; A9579; J1642; J1644; J1815; J1940; J2250; J2270; J2543; J2920; J3370; J7030; J7040; L3260; Q9967